=== PATIENT | female | born 1975 | race Caucasian/White ===

== ENCOUNTER 2021-01-28 11:14 | Outpatient (REF) | payer MEDICAID, SELFPAY ==
[2021-01-28 15:23] LABS: CT PCR NOT DETECTED (Not Detect.); NG PCR NOT DETECTED (Not Detect.)
[2021-01-29 08:22] LABS: BV Int Neg Control Negative (Negative); BV Int Pos Control Positive (Positive)
[2021-01-31 05:42] LABS: HPV mRNA E6/E7 rflx Not Detected (Not Detected)
== END 2021-01-28 11:15 | disposition home or self-care (01) ==
LOC: HO.LAB 11:14
PROVIDERS: Visit Provider Advanced Practice Midwife
DX: Z01.419 Encounter for gynecological examination (general) (routine) without abnormal findings (principal); Z11.51 Encounter for screening for human papillomavirus (HPV); Z11.3 Encounter for screening for infections with a predominantly sexual mode of transmission; Z20.2 Contact with and (suspected) exposure to infections with a predominantly sexual mode of transmission
CPT/HCPCS: 81003; 87480; 87491; 87510; 87591; 87624; 87660; 88142

== ENCOUNTER 2021-04-17 10:00 | Outpatient (REF) | payer MEDICAID, SELFPAY ==
--- NOTE | ~2021-04-17 | US_ITS ---
EXAMINATION: PELVIC ULTRASOUND CLINICAL INFORMATION: Check IUD placement COMPARISON: None TECHNIQUE: Transabdominal and transvaginal pelvic ultrasound was performed. Transvaginal exam was performed for better visualization of the uterus and ovaries. Exam is limited due to patient body habitus. FINDINGS: The uterus is anteverted and measures 10 x 7 x 9 cm in dimension. There are several focal uterine lesions suggestive of fibroids. These measure 3.4 x 3.3 x 3.4 cm in the high right uterine body near the endometrium, 3 cm in the high left uterine body near the endometrium, 1.8 x 1.2 x 1.7 cm in the right uterine body near the endometrium and in the right body measuring 2 x 2 x 1.2 cm. The endometrium does not appear thickened measuring 0.6 cm. The IUD is difficult to visualize. The IUD appears to be located in the lower uterine segment 4.3 cm from the uterine fundus. The right ovary is normal-appearing and measures 4.2 x 1.7 x 1.6 cm. The left ovary is not seen. There is no fluid in the pelvis. US/US pelvic and transvaginal IMPRESSION: Limited exam. Fibroid uterus. Low position of IUD in the lower uterine segment. This is 4.3 cm from the uterine fundus. Normal-appearing right ovary. Left ovary not seen.
== END 2021-04-17 10:01 | disposition home or self-care (01) ==
LOC: HO.HMGCX 10:00
PROVIDERS: Visit Provider Internal Medicine
DX: Z30.431 Encounter for routine checking of intrauterine contraceptive device (principal)
CPT/HCPCS: 76830; 76856

== ENCOUNTER 2022-02-12 10:23 | Outpatient (REF) | payer MEDICAID, SELFPAY ==
[2022-02-13 06:58] LABS: CT PCR NOT DETECTED (Not Detect.); NG PCR NOT DETECTED (Not Detect.)
[2022-02-13 10:56] LABS: BV Int Neg Control Negative (Negative); BV Int Pos Control Positive (Positive)
== END 2022-02-12 10:24 | disposition home or self-care (01) ==
LOC: HO.LAB 10:23
PROVIDERS: Visit Provider Advanced Practice Midwife
DX: Z01.419 Encounter for gynecological examination (general) (routine) without abnormal findings (principal); E66.01 Morbid (severe) obesity due to excess calories; Z20.2 Contact with and (suspected) exposure to infections with a predominantly sexual mode of transmission
CPT/HCPCS: 87480; 87491; 87510; 87591; 87660

== ENCOUNTER 2022-03-02 09:11 | Outpatient (REF) | payer MEDICAID, SELFPAY ==
--- NOTE | ~2022-03-02 | MM_ITS ---
EXAMINATION: MM SCREENING DIGITAL BREAST TOMOSYNTHESIS, BILATERAL CLINICAL INFORMATION: Screening. Asymptomatic. The lifetime risk of breast cancer based on the Tyrer-Cuzick Model is 11%. COMPARISON: Mammography: September 28, 2012 TECHNIQUE: Digital breast tomosynthesis is performed in both the craniocaudal and mediolateral oblique views along with computer-aided detection (CAD). Synthesized 2D images are generated from the tomosynthesis. FINDINGS: There are scattered areas of fibroglandular density (ACR BI-RADS breast composition Category b). There are no significant masses, abnormal calcifications, or other abnormalities. MM/MM tomosynthesis screening BI IMPRESSION: There are no significant changes from prior study. ASSESSMENT: BI-RADS 1: Negative RECOMMENDATION: Routine annual mammography screening. This patient's information was entered into a reminder system with a target due date for their next mammogram.
== END 2022-03-02 09:12 | disposition home or self-care (01) ==
LOC: HO.MAMMO 09:11
PROVIDERS: Visit Provider Advanced Practice Midwife
DX: Z12.31 Encounter for screening mammogram for malignant neoplasm of breast (principal)
CPT/HCPCS: 77063; 77067

== ENCOUNTER 2023-05-14 10:54 | Outpatient (REF) | payer MEDICAID, SELFPAY ==
[2023-05-17 16:19] LABS: TS Negative Control Passed; TS Panel A 0; TS Panel B 2; TS Positive Control Passed; TSpotTB Negative (Negative)
== END 2023-05-14 10:55 | disposition home or self-care (01) ==
LOC: HO.CHCLDS 10:54
PROVIDERS: Visit Provider Student in an Organized Health Care Education/Training Program
DX: Z11.1 Encounter for screening for respiratory tuberculosis (principal)
CPT/HCPCS: 36415; 86481

== ENCOUNTER 2024-03-17 10:04 | Outpatient (REF) | payer MEDICAID, SELFPAY ==
--- NOTE | ~2024-03-17 | MM_ITS ---
EXAMINATION: MM SCREENING DIGITAL BREAST TOMOSYNTHESIS, BILATERAL CLINICAL INFORMATION: Screening. Asymptomatic. COMPARISON: Mammography: This study is compared with prior exams dating back to 2012. TECHNIQUE: Digital breast tomosynthesis is performed in both the craniocaudal and mediolateral oblique views along with computer-aided detection (CAD). Synthesized 2D images are generated from the tomosynthesis. FINDINGS: There are scattered areas of fibroglandular density (ACR BI-RADS breast composition Category b). There are no significant masses, abnormal calcifications, or other abnormalities. MM/MM tomosynthesis screening BI IMPRESSION: No mammographic evidence of malignancy. ASSESSMENT: BI-RADS BI-RADS 1 - Negative RECOMMENDATION: Routine annual mammography screening. 1 year F/U This examination should not preclude the clinical evaluation of a suspicious palpable abnormality. This patient's information was entered into a reminder system with a target due date for their next mammogram.
== END 2024-03-17 10:05 | disposition home or self-care (01) ==
LOC: HO.MAMMO 10:04
PROVIDERS: PCP Student in an Organized Health Care Education/Training Program; Visit Provider Advanced Practice Midwife
DX: Z12.31 Encounter for screening mammogram for malignant neoplasm of breast (principal)
CPT/HCPCS: 77063; 77067

== ENCOUNTER → 2024-03-17 10:15 | Outpatient (BNV) | payer MEDICAID, SELFPAY | PROVIDERS: PCP Student in an Organized Health Care Education/Training Program; Visit Provider Radiology Diagnostic Radiology | DX: Z12.31 Encounter for screening mammogram for malignant neoplasm of breast (principal) | CPT/HCPCS: 77063; 77067 ==

== ENCOUNTER 2024-11-03 12:45 | Outpatient (REF) | payer MEDICAID, SELFPAY ==
--- NOTE | ~2024-11-03 | XR_ITS ---
EXAMINATION: XR KNEE, RIGHT CLINICAL INFORMATION: right knee pain /swelling. Denies injury. COMPARISON: None available. TECHNIQUE: Three views of the right knee. FINDINGS: No fracture, dislocation, or suspicious bone lesion. Normal alignment. Mild to moderate tricompartmental osteoarthrosis with mild marginal osteophytic spurring and spurring of the tibial spines. Small suprapatellar joint effusion present. Normal soft tissues. XR/XR knee RT 3V IMPRESSION: 1. No acute findings right knee. 2. Mild to moderate tricompartmental osteoarthrosis. 2. Small suprapatellar joint effusion. Electronically signed by: Elder Mendoza MD 11/03/2024 01:15 PM [facility]
--- OUTSIDE RECORDS SUMMARY | 2024-11-03 14:36 | XMS_ITS | Encounter Summary ---
Author Organization [employer] Address [address] [place] [address] Care Team Providers Care Investor Relations Analyst Name Role Phone Africa Holman MD Primary Care Provider [phone] Reason for Visit * Reason Onset Date Comments Appointment Request 11/03/2023 Encounter Details Date Type Department Care Team ([facility] Contact Info) Description 11/03/2023 Telephone [facility] [address] [place] [address] Africa Holman MD [address] [place] [address] Appointment Request Social History Tobacco Use Types Packs/Day Years Used Date Smoking Tobacco: Never Passive Smoke Exposure: Never Smokeless Tobacco: Never Alcohol Use Standard Drinks/Week Comments Never 0 (1 standard drink = 0.6 oz pur e alcohol) Depression Answer Date Recorded Patient Health Questionnaire-9 Score 0 12/31/2022 Housing Stability Answer Date Recorded What is your housing situation today? I have gurpreet lovell 07/27/[address] you li ve. Do you have problems with any of the following? None of the above 07/27/2023 Food Insecurity Answer Date Recorded Within the past 12 months, y ou worried that your food would run out before you got money to buy more: Never True 07/27/2023 Within the past 12 months,th e food you bought just didn't last and you didn't have enough money to get more: Never True 10/ Transportation Answer Date Recorded In the past 12 months, has l ack of transportation kept you from medical appts, meetings, work or from getting things needed for daily living? No 07/27/2023 Utilities Answer Date Recorded In the past 12 months, has t he electric, gas, oil or water company threatened to shut off services in your home? No 07/27/2023 Depression Answer Date Recorded Patient Health Questionnaire-2 Score 0 12/31/2022 Comments Unknown Sex and Gender Information Value Date Recorded Sex Assigned at Female 08/10/2022 10:15 AM EDT Legal Sex Female 10:15 AM EDT Gender Identity Female 08/10/2022 10:15 AM EDT Sexual Orientation Straight 08/10/2022 10 :15 AM EDT documented as of this encounter Miscellaneous Notes * Telephone Encounter - Eliu Keys - 11/03/2023 2:47 PM EST Tc from pt requesting a PE appt which is needed for work . Please contact pt @ [phone] documented in this encounter Plan of Treatment Not on file documented as of this encounter Visit Diagnoses Not on filedocumented in this encounter Additional Health Concerns Assessment Noted Time PHQ-9 Depression Total Score: 0 01/01/20 23 11:23 AM EDT documented as of this encounter Care Teams Investor Relations Analyst Relationship Specialty Start Date End Date Africa Holman MD [address] [place] [address] PCP - General Family Medicine 11/05/20 documented as of this encounter
--- OUTSIDE RECORDS SUMMARY | 2024-11-03 14:37 | XMS_ITS | Clinical Summary ---
Author Organization [facility] Address [address] [place] [id number] Care Team Providers Care Shore Working Supervisor Name Role Phone Farzad Rodriguez MD Primary Care Provider [phone] Surgical History Surgery Date Site/Laterality Comments TONSILLECTOMY PROCEDURE: HISTORICAL TONSILLECTOMY COLONOSCOPY W/ POLYPECTOMY 11/03/2010 PROCEDURE: CA COLSC FLX W/RMVL OF TUMOR POLYP LESION SNARE TQ; COMMENT: large 2 cm sigmoid colon polyp: Tubulovillous adenoma. 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 DX:Congeni mike pes planus Morbid obesity (CMS/HCC) 10/26/2006 DX:Morb id obesity (HCC) Depression 02/23/2008 DX:Depression Insomnia 02/23/2008 DX:Insomnia Unspecified asthma(493.90) DX:Un specified asthma(493.90); COMMENT: childhood Benign neoplasm of colon 11/03/2010 DX:Victorino gn neoplasm of colon Family History Medical History Relation Name Comments Other: ovarian cancer Aunt 1 matern al Other: alcoholic Father Other cancer Maternal Grandmother bone Other: epilepsy Mother 39 Breast cancer Mother's side 1 aunt Other cancer Other 1 15 y/o - needed bone marrow transplant Relation Name Status Comments Aunt 1 Aunt 2 Father Maternal Grandmother Mother Mother's side 1 Mother's side 2 Other 1 Other 2 Social History Tobacco Use Types Packs/Day Years Used Date Smoking Tobacco: Some Days Cigarettes Smokeless Tobacco: Never Alcohol Use Standard Drinks/Week Comments No 0 (1 standard drink = 0.6 oz pur e alcohol) Sex and Gender Information Value Date Recorded Sex Assigned at Not on file Gender Identity Not on file Sexual Orientation Not on file Obstetrics History Plan of Treatment Health Maintenance Due Date Last Done Comments Breast Cancer Screening 1975 Cervical Cancer Screening: P ap Smear 1997 DTaP,Tdap,and Td Vaccines (2 - Td or Tdap) 10/26/2016 10/26/2006 COVID-19 Vaccine (2023-2 5 season) 2024 Influenza Vaccine (#1) 2024 0, 12/03/2009, 12/03/2009 Hepatitis A Vaccines Aged Out 06/16/2001, 12/03/2000 No longer eligible based on patient's age to complete this topic Hepatitis B Vaccines Completed 06/16/2001, 01/05/2001, 12/03/2000 HIB Vaccines Aged Out No longer eligi ble based on patient's age to complete this topic HPV Vaccines Aged Out No longer eligi ble based on patient's age to complete this topic IPV Vaccines Aged Out No longer eligi ble based on patient's age to complete this topic MMR Vaccines Aged Out No longer eligi ble based on patient's age to complete this topic Meningococcal ACWY Vaccine Aged Out N o longer eligible based on patient's age to complete this topic Pneumococcal Vaccine: Pediatrics (0 to 5 Years) and At-Risk Patients (6 to 64 Years) Aged Out No longer eligible b ased on patient's age to complete this topic RSV Immunization Patients Under 20 months Aged Out No longer eligible b ased on patient's age to complete this topic Varicella Vaccines Aged Out No longer eligible based on patient's age to complete this topic Care Teams Shore Working Supervisor Relationship Specialty Start Date End Date Farzad Rodriguez MD [address] [facility] [place] PCP - General Internal Medicine 11/18/12
--- OUTSIDE RECORDS SUMMARY | 2024-11-03 14:37 | XMS_ITS | Encounter Summary ---
Author Organization [employer] Address [address] [place] [address] Care Team Providers Care Group Underwriter Name Role Phone Africa Holman MD Primary Care Provider [phone] Reason for Visit * Reason Onset Date Comments Nurse Triage 10/31/2024 Encounter Details Date Type Department Care Team ([facility] st Contact Info) Description 10/31/2024 Telephone [facility] [address] [place] [address] Africa Holman MD [address] [place] [address] Nurse Triage Social History Tobacco Use Types Packs/Day Years Used Date Smoking Tobacco: Never Passive Smoke Exposure: Never Smokeless Tobacco: Never Alcohol Use Standard Drinks/Week Comments Never 0 (1 standard drink = 0.6 oz pur e alcohol) Depression Answer Date Recorded Patient Health Questionnaire-9 Score 2 02/14/2024 Patient Health Questionnaire-9 Score 2 02/14/2024 Last PHQ-9: Questionnaire Data Not on file 0 02/14/2024 Housing Stability Answer Date Recorded What is your housing situation today? I have gurpreet lovell 02/07/[address] you li ve. Do you have problems with any of the following? None of the above 02/07/2024 Food Insecurity Answer Date Recorded Within the past 12 months, y ou worried that your food would run out before you got money to buy more: Never True 02/07/2024 Within the past 12 months,th e food you bought just didn't last and you didn't have enough money to get more: Never True Transportation Answer Date Recorded In the past 12 months, has l ack of transportation kept you from medical appts, meetings, work or from getting things needed for daily living? No 02/07/2024 Utilities Answer Date Recorded In the past 12 months, has t he electric, gas, oil or water company threatened to shut off services in your home? No 02/07/2024 Depression Answer Date Recorded Patient Health Questionnaire-2 Score 0 02/14/2024 Comments Unknown Sex and Gender Information Value Date Recorded Sex Assigned at Female 08/10/2022 10:15 AM EDT Legal Sex Female 10:15 AM EDT Gender Identity Female 08/10/2022 10:15 AM EDT Sexual Orientation Straight 08/10/2022 10 :15 AM EDT documented as of this encounter Miscellaneous Notes * Telephone Encounter - Breanne Joyner RN - 10/31/2024 3:19 PM EST called pt to triage, spoke to pt. pt states 4 days duration of swelling, pain, and decreased ROM. pt denies known injury, redness, inability to stand or walk, or other associated symptoms. given appttom[facility] with [facility] at 2:40 for exam. advised home care: rest, elevate, ice, heat, OTC pain reliever as needed, and call back if worsening or new concerns. pt understands and agrees with plan. insurance verified. Protocol Used: Knee Pain (Adult) Protocol-Based Disposition: See in Office or Video Visit within 3 Days Video visit offer not recorded Positive Triage Question: * Patient wants to be seen * All higher-acuity triage questions were negative Care Advice Discussed: * Reassurance and Education - Knee Pain * Pain Medicines * Pain Medicines - Extra Notes and Warnings * Using Heat for Pain * Reasons To Call Back - Moderate pain (interferes with normal activities, limping) lasts over 3 days - Mild pain lasts over 7 days - Signs of infection occur (spreading redness, warmth, fever) - You become worse * Telephone Encounter - Emelyn Westfall - 10/31/2024 11:29 AM EST Symptom: Knee Pain - Not From Injury Outcome: Schedule an urgent appointment (within 4 hours) or talk to a nurse or provider soon Reason: Swelling The caller accepted this outcome. Please reach ou to pt more then 2x . Due to being at work documented in this encounter Plan of Treatment Not on file documented as of this encounter Visit Diagnoses Not on filedocumented in this encounter Additional Health Concerns Assessment Noted Time PHQ-9 Depression Total Score: 2 02/14/20 24 10:30 AM EDT documented as of this encounter Care Teams Group Underwriter Relationship Specialty Start Date End Date Africa Holman MD [address] [place] [address] PCP - General Family Medicine 11/05/20 documented as of this encounter
--- OUTSIDE RECORDS SUMMARY | 2024-11-03 14:37 | XMS_ITS | Encounter Summary ---
Author Organization [employer] Address [address] [place] [address] Care Team Providers Care Gauge And Weigh Machine Adjuster Name Role Phone Africa Holman MD Primary Care Provider [phone] Encounter Details Date Type Department Care Team (Late st Contact Info) Description 10/09/2024 Telephone [facility] [address] [place], [place] [id number] Angélica Gomez [place] Social History Tobacco Use Types Packs/Day Years [...] encounter Miscellaneous Notes * Telephone Encounter - Angélica Gomez [place] - 10/09/2024 11:30 AM EST T/c to pt to book her a pap smear appointment for Nov I stated she was due pt stated she will call me back due to driving. documented in this encounter Plan of Treatment Not on file documented as of this encounter Visit Diagnoses Not on filedocumented in this encounter Additional Health Concerns Assessment Noted Time PHQ-9 Depression Total Score: 2 02/14/20 24 10:30 AM EDT documented as of this encounter Care Teams Gauge And Weigh Machine Adjuster Relationship Specialty Start Date End Date Africa Holman MD [address] [place] [address] PCP - General Family Medicine 11/05/20 documented as of this encounter
--- OUTSIDE RECORDS SUMMARY | 2024-11-03 14:37 | XMS_ITS | Encounter Summary ---
Author Organization [employer] Address [address] [facility] [facility] [address] [place] [address] Care Team Providers Care Certified Energy Manager Name Role Phone Africa Holman MD Primary Care Provider [phone] Reason for Referral * Consultation (Routine) - Closed Specialty Diagnoses / Procedures Referred By Orly [email or web address] Referred To Contact Physical Therapy Diagnoses Acute pain of right knee Travis Ley MD [address] [place] [address] Phone: tel: fax: Physical Therapy, AT [address] [place] [address] Dr Lori [place] Phone: tel: fax: Referral ID Status Reason Start Date Expiration Date V isits Requested Visits Authorized [id number] Closed Specialty Services Required 11/01/2024 11/01/2025 1 1 Reason for Visit * Reason Comments Knee Pain Encounter Details Date Type Department Care Team ([facility] st Contact Info) Description 11/01/2024 2:40 PM EST Office Visit [facility] & PEDS [address] [place] [address] Travis Ley MD [address] [place] [address] Acute pain of right knee (Primary Dx); Dietary counseling; Exercise counseling; Class 3 severe obesity due to excess calories with serious comorbidity and body mass index (BMI) of 45.0 to 49.9 in adult ([facility]) Social History Tobacco Use Types Packs/Day Years [...] is your housing situation today? I have gurpreetpriya lovell 02/07/[address] you [...] AM EDT documented as of this encounter Last Filed Vital Signs Vital Sign Reading Time Taken Comments Blood Pressure 142/75 11/01/2024 2:45 PM EST Pulse 88 11/01/2024 2:45 PM EST Temperature 36.7 ??C (98 ??F) 11/01/2024 2:45 PM EST Respiratory Rate 20 11/01/2024 2:45 PM EST Oxygen Saturation 98% 11/01/2024 2:45 PM EST Inhaled Oxygen Concentration - - Weight 152 kg (334 lb) 11/01/2024 2:45 PM EST Height 175.3 cm (5' 9 ) 11/01/2024 2:45 PM EST Body Mass Index 49.32 11/01/2024 2:45 PM EST documented in this encounter Progress Notes * Travsi Ley MD - 11/01/2024 2:40 PM EST Subjective Patient ID: Tia Moreira is a 49 y.o. female who presents for Knee Pain. Knee Pain Right knee discomfort that started 3-4 days ago associated w/ swelling of the knee. No reported fall/trauma. No fever. 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 Has to do her laundry as son's house and has to go up and down the stairs quiet a lot and use stairs as well multiple times a day at her house. Patient Active Problem List Diagnosis Obstructive sleep apnea syndrome Edema of extremities Diverticulosis of sigmoid colon Carpal tunnel syndrome Hyperhidrosis of axilla Genital herpes simplex Adult BMI 40.0-44.9 kg/sq m (CMS/HCC) Internal hemorrhoids Polyp of colon Morbid obesity (CMS/HCC) Current Outpatient Medications on File Prior to Visit Medication Sig Dispense Refill hydroCHLOROthiazide (HYDRODiuril) 25 MG tablet Take 1 tablet by mouth every 12 (twelve) hours. [DISCONTINUED] ibuprofen 800 MG tablet Take 1 tablet (800 mg) by mouth every 8 (eight) hours. 30 tablet 1 No current facility-administered medications on file prior to visit. Review of Systems Constitutional: Negative for appetite change, chills and diaphoresis. Eyes: Negative for photophobia, pain and redness. Respiratory: Negative for cough and choking. Gastrointestinal: Negative for abdominal distention, abdominal pain and anal bleeding. Genitourinary: Negative for enuresis, flank pain and frequency. Musculoskeletal: Right knee pain Objective Physical Exam Constitutional: Appearance: Normal appearance. She is obese. She is not ill-appearing or diaphoretic. Pulmonary: Effort: Pulmonary effort is normal. Musculoskeletal: Right knee: Swelling and effusion present. No tenderness. Left knee: No swelling, deformity, effusion or erythema. Neurological: Mental Status: She is alert. 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 documented in this encounter Plan of Treatment Scheduled Referrals Name Type Priority Associated Diagnoses Orde r Schedule Referral to Physical Therapy Outpatient Referral Routine Acute pain of right knee Expected: 11/01/2024 (Approximate), Expires: 11/01/2025 documented as of this encounter Procedures Procedure Name Priority Date/Time Associated Diagnosis Comments XR KNEE 3 VIEWS RIGHT Routine 11/03/2024 12:45 PM EST Acute pain of right knee documented in this encounter Results * XR Knee 3 Views Right (11/03/2024 12:45 PM EST) Anatomical Region Laterality Modality Lower Extremities, Knee Right Radiogra phic Imaging 11/03/2024 12:4 5 PM EST Narrative 11/03/2024 1:17 PM EST ?[facility] ?[address] ?[place] [address] ?XRay Report ? Signed ? Patient: Tia Moreira ?MR#: [id number] ?? 47 ? : 1975 ?Acct:[id number] ? Age/Sex: 49 / F ?ADM Date: 01/24/25 ? Loc: HO.HHCX ? Attending Dr: Travis Ley MD ? Ordering Physician: Travis Ley MD ?? Date of Service: 11/03/24 ?? Procedure(s): XR knee RT 3V ?? Accession Number(s): [id number] ? cc: Travis Ley MD ? EXAMINATION: ?? XR KNEE, RIGHT ? CLINICAL INFORMATION: ?? right knee pain /swelling. ??Denies injury. ? COMPARISON: ?? None available. ? TECHNIQUE: ?? Three views of the right knee. ? FINDINGS: ?? No fracture, dislocation, or suspicious bone lesion. Normal alignment. ?? Mild to moderate tricompartmental osteoarthrosis with mild marginal ?? osteophytic spurring and spurring of the tibial spines. ? Small suprapatellar joint effusion present. ?? Normal soft tissues. ? XR/XR knee RT 3V ?? IMPRESSION: ? 1. No acute findings right knee. ?? 2. Mild to moderate tricompartmental osteoarthrosis. ?? 2. Small suprapatellar joint effusion. ? Electronically signed by: ??Elder Mendoza MD ??11/03/2024 01:15 PM EST RP ? Dictated By: ?Elder Mendoza MD ? Signed By: ?<Electronically signed by Elder Mendoza MD in OV> ?11/03/24 1315 ? DD/ 1245 ? TD/TT: 11/03/24 1256 ? Electronic Tester: ? Procedure Note Arelis, Image - 11/03/[address] [address] XRay Report Signed Patient: Tia Moreira LMR#: [id number] 47 : 1975Acct:[id number] Age/Sex: 49 / FADM Date: 11/03/24 Loc: HO.HHCX Attending Dr: Travis Ley MD Ordering Physician: Travis Ley MD Date of Service: 11/03/24 Procedure(s): XR knee RT 3V Accession Number(s): [id number] cc: Travis Ley MD EXAMINATION: XR KNEE, RIGHT CLINICAL INFORMATION: right knee pain /swelling. Denies injury. COMPARISON: None available. TECHNIQUE: Three views of the right knee. FINDINGS: No fracture, dislocation, or suspicious bone lesion. Normal alignment. Mild to moderate tricompartmental osteoarthrosis with mild marginal osteophytic spurring and spurring of the tibial spines. Small suprapatellar joint effusion present. Normal soft tissues. XR/XR knee RT 3V IMPRESSION: 1. No acute findings right knee. 2. Mild to moderate tricompartmental osteoarthrosis. 2. Small suprapatellar joint effusion. Electronically signed by: Elder Mendoza MD 11/03/2024 01:15 PM EST RP Dictated By: Elder Mendoza MD Signed By: <Electronically signed by Elder Mendoza MD in OV> 11/03/24 1315 DD/ 1245 TD/TT: 11/03/24 1256 Electronic Tester: us Travis Ley MD IMG XR PROCEDURES Final Res ult documented in this encounter Visit Diagnoses Diagnosis Acute pain of right knee- Primary Dietary counseling Dietary surveillance and counseling Exercise counseling Class 3 severe obesity due to excess calories with serious comorbidity and body mass index (BMI) of 45.0 to 49.9 in adult (CMS/HCC) documented in this encounter Additional Health Concerns Assessment Noted Time PHQ-9 Depression Total Score: 2 02/14/20 24 10:30 AM EDT documented as of this encounter Care Teams Certified Energy Manager Relationship Specialty Start Date End Date Africa Holman MD [address] [place] [id number] PCP - General Family Medicine 11/05/20 documented as of this encounter
--- OUTSIDE RECORDS SUMMARY | 2024-11-03 14:37 | XMS_ITS | Clinical Summary ---
Author Organization [employer] Address [address] [place] [address] Care Team Providers Care Extrusion Die Repair Manager Name Role Phone Africa Holman MD Primary Care Provider [phone] Allergies No known active allergies Medications hydroCHLOROthia zide (HYDRODiuril) 25 MG tablet Take 1 tablet by mouth every 12 (twelve) hours. 2 Active naproxen (Naprosyn) 500 MG tabletIndicatio ns:Acute pain of right knee Take 1 tablet (500 mg) by mouth 2 times daily. 60 tablet 5 12/01/19 25 Active ibuprofen 800 MG tablet Take 1 tablet (800 mg) by mouth every 8 (eight) hours. 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 Genital herpes simplex 02/14/2024 Adult BMI 40.0-44.9 kg/sq m 02/14/2024 Internal hemorrhoids 02/14/2024 Polyp of colon 02/14/2024 Morbid obesity 02/14/2024 Obstructive sleep apnea syndrome 12/31/2022 Edema of extremities 12/31/2022 Diverticulosis of sigmoid colon 12/31/2022 Carpal tunnel syndrome 12/31/2022 Encounters Date Type Department Care Team Description 11/01/2024 2:40 PM EST Office Visit [facility] MED & PEDS [address] [place] [address] Travis Ley MD Acute pain of right knee (Primary Dx); Dietary counseling; Exercise counseling; Class 3 severe obesity due to excess calories with serious comorbidity and body mass index (BMI) of 45.0 to 49.9 in adult ([facility]) 11/01/2024 Travel 10/31/2024 Telephone [facility] MED & PEDS [address] [place], [place] [phone] Africa Holman MD Nurse Triage 10/09/2024 Telephone [facility] MEDICINE [address] [place], [place] [phone] Angélica Gomez MA from Last 3 Months Immunizations Name Administration Dates Next Due Hep A, Adult 06/16/2001,12/03/2000 Hep B, adult 04/11/2014, 4,09/11/2013,2000,01/05/2001,12/03/2000 Influenza Whole 07/27/2012 Influenza injectable quadriv alent preservative free 06/19/2022,10/07/2021,07/26/2020 Influenza, IIV3, injectable 07/12/2019,1 ,06/29/2017,2012,09/18/2010,12/03/2009 Novel [id number], preservative-free 12/03/2009 TD (adult), 2 Lf tetanus tox oid, preservative free, adsorbed 10/26/2006 Tdap 01/17/2021,06/08/2013 Social History Tobacco Use Types Packs/Day Years Used Date Smoking Tobacco: Never Passive Smoke Exposure: Never Smokeless Tobacco: Never Tobacco Cessation:Counseling Given: Not Answered Alcohol Use Standard Drinks/Week Comments Never 0 [...] Orientation Straight 08/10/2022 10 :15 AM EDT Last Filed Vital Signs Vital Sign Reading [...] Mass Index 49.32 11/01/2024 2:45 PM EST Plan of Treatment Health Maintenance Due Date Last Done Comments CT Colonography 1975 Colonoscopy 1975 Colorectal Cancer Screening 1975 FIT DNA/Cologuard 1976 FIT 1975 FOBT 1976 Sigmoidoscopy 1976 Family Planning (PISQ) 1991 Hepatitis C Screening 1994 Pap Smear 1997 COVID-19 Vaccine ( season) 2024 10/07/2021, 03/17/2021, 02/17/2021 Influenza Vaccine (#1) 2024 2, 10/07/2021, 07/26/2020, Additional history exists Cervical Cancer Screening 11/29/2024 HPV/Cotest 11/29/2024 11/29/2019 Alcohol/Substance Use Screening 02/13/2025 02/14/2024 Depression Screening 02/13/2025 02/14/2024, 02/14/20 24 SDOH Screening 02/13/2025 02/14/2024 Tobacco Screening 02/13/2025 02/14/2024 Mammogram 03/17/2026 03/17/2024 Zoster Vaccines (1 of 2) 2026 Lipid Panel 06/19/2027 06/19/2022 DTaP/Tdap/Td Vaccines (3 - Td or Tdap) 01/17/2031 01/17/2021, 06/08/2013, 10/26/2006 RSV Patients and Patients Aged 60 years or older (1 - 1-dose 75+ series) 2051 Hepatitis A Vaccines Aged Out 06/16/2001, 12/03/19 01 No longer eligible based on patient's age to complete this topic Hepatitis B Vaccines Completed 04/11/2014, 10/12/2013, 09/11/2013, Additional history exists HIV Screening Completed 10/23/2019 HIB Vaccines Aged Out No longer eligi ble based on patient's age to complete this topic HPV Vaccines Aged Out No longer eligi ble based on patient's age to complete this topic IPV Vaccines Aged Out No longer eligi ble based on patient's age to complete this topic Meningococcal Vaccine Aged Out No joanne paxton eligible based on patient's age to complete this topic Pneumococcal Vaccine: Pediatrics (0 to 5 Years) and At-Risk Patients (6 to 64 Years) Aged Out No longer eligible based on patient's age to complete this topic RSV under 20 months Aged Out No longe r eligible based on patient's age to complete this topic Rotavirus Vaccines Aged Out No longer eligible based on patient's age to complete this topic Procedures Procedure Name Priority Date/Time Associated Diagnosis Comments XR KNEE 3 VIEWS RIGHT Routine 11/03/2024 12:45 PM EST Acute pain of right knee BI MAMMOGRAM SCREENING TOMOSYNTHESIS BILATERAL Routine 03/17/2024 10:35 AM EDT LIPID PANEL, STANDARD Routine 06/19/2022 11:06 AM EDT GENE HISTORICAL HPV MRNA E6/E7 Routine 11/29/2019 8:50 AM EST GENE HISTORICAL HIV AB/AG Routine 10/23/2019 3:53 PM EST from Last 3 Months or Most Recently Relevant to Health Maintenance Results * XR Knee 3 Views Right (11/03/2024 12:45 PM EST) Anatomical Region Laterality Modality Lower Extremities, Knee Right Radiogra phic Imaging 11/03/2024 12:4 5 PM EST Narrative 11/03/2024 1:17 PM EST ?[facility] ?[address] ?[place] [address] ?XRay Report ? Signed ? Patient: Tia Moreira ?MR#: [id number] ?? 47 ? : 1975 ?Acct:[id number] ? Age/Sex: 49 / F ?ADM Date: 11/03/24 ? Loc: HO.HHCX ? Attending Dr: Travis Ley MD ? Ordering Physician: Travis Ley MD ?? Date of Service: 11/03/24 ?? Procedure(s): XR knee RT 3V ?? Accession Number(s): [id number] ? cc: Travis Ley MD ? EXAMINATION: [...] DD/ 1245 ? TD/TT: 11/03/24 1256 ? Blowing Weasand: ? Procedure Note Arelis, Image - 11/03/[address] [address] XRay Report Signed Patient: Tia Moreira LMR#: [id number] 47 : 1975Acct:[id number] Age/Sex: 49 / FADM Date: 11/03/24 Loc: HO.HHCX Attending Dr: Travis Ley MD Ordering Physician: Travis Ley MD Date of Service: 11/03/24 Procedure(s): XR knee RT 3V Accession Number(s): [id number] cc: Travis Ley MD EXAMINATION: XR KNEE, [...] by: Elder Mendoza MD 11/03/2024 01:15 PM [facility] Dictated By: Elder Mendoza MD Signed By: <Electronically signed by Elder Mendoza MD in OV> 11/03/24 1315 DD/ 1245 TD/TT: 11/03/24 1256 Blowing Weasand: us Travis Ley MD IMG XR PROCEDURES Final Res ult * BI Mammogram Screening Tomosynthesis Bilateral (03/17/2024 10:35 AM EDT) Anatomical Region Laterality Modality Breast Bilateral Mammography 03/17/2024 10:3 5 AM EDT Narrative 04/11/2024 8:36 AM EDT ? [facility] [place] ? [address] ?[place] [address] ? Mammography Report ? Signed ? Patient: Tia Moreira ?MR#: [id number] ?? 47 ? : 1975 ?Acct:[id number] ? Age/Sex: 48 / F ?ADM Date: 03/17/24 ? Loc: HO.MAMMO ? Attending Dr: Stephany Anderson CNM ? Ordering Physician: Stephany Anderson CNM ?Results: 1Negati ?? ve ? Date of Service: 03/17/24 ?Follow Up: 1 Year From Orig ?? inal Mammogram ? Procedure(s): MM tomosynthesis screening BI ?? Accession Number(s): [id number] ? cc: Stephany Anderson CNM; Africa Holman MD ? EXAMINATION: ?? MM SCREENING DIGITAL BREAST TOMOSYNTHESIS, BILATERAL ? CLINICAL INFORMATION: ? Screening. Asymptomatic. ? COMPARISON: ?? Mammography: This study is compared with prior exams dating back to ?? 2011. ? TECHNIQUE: ?? Digital breast tomosynthesis is performed in both the craniocaudal and ?? mediolateral oblique views along with computer-aided detection (CAD). ?? Synthesized 2D images are generated from the tomosynthesis. ? FINDINGS: ?? There are scattered areas of fibroglandular density (ACR BI-RADS breast ?? composition Category b). ? There are no significant masses, abnormal calcifications, or other ?? abnormalities. ? MM/MM tomosynthesis screening BI ?? IMPRESSION: ?? No mammographic evidence of malignancy. ? ASSESSMENT: ? BI-RADS BI-RADS 1 - Negative ? RECOMMENDATION: ?? Routine annual mammography screening. ? 1 year F/U ? This examination should not preclude the clinical evaluation of a ?? suspicious palpable abnormality. ? This patient's information was entered into a reminder system with a ?? target due date for their next mammogram. ? Dictated By: ?Ninoska Fernandez MD ? Signed By: ?<Electronically signed by Ninoska Fernandez MD in OV> ? 04/11/24 0832 ? DD/ 1035 ? TD/TT: ? Blowing Weasand: ? Procedure Note Zee Infante - 04/11/2024 [facility] [address] [place], [place] [address] Mammography Report Signed Patient: Tia Moreira LMR#: [id number] 47 : 1975Acct:[id number] Age/Sex: 48 / FADM Date: 03/17/24 Loc: PIA Attending Dr: Stephany Anderson CNM Ordering Physician: Stephany Andersonesults: 1Negati ve Date of Service: 03/17/24Follow Up: 1 Year From Orig inal Mammogram Procedure(s): MM tomosynthesis screening BI Accession Number(s): [id number] cc: Stephany Anderson CNM; Africa Holman MD EXAMINATION: MM SCREENING DIGITAL BREAST TOMOSYNTHESIS, BILATERAL CLINICAL INFORMATION: Screening. Asymptomatic. COMPARISON: Mammography: This study is compared with prior exams dating back to 2012. TECHNIQUE: Digital breast tomosynthesis is performed in both the craniocaudal and mediolateral oblique views along with computer-aided detection (CAD). Synthesized 2D images are generated from the tomosynthesis. FINDINGS: There are scattered areas of fibroglandular density (ACR BI-RADS breast composition Category b). There are no significant masses, abnormal calcifications, or other abnormalities. MM/MM tomosynthesis screening BI IMPRESSION: No mammographic evidence of malignancy. ASSESSMENT: BI-RADS BI-RADS 1 - Negative RECOMMENDATION: Routine annual mammography screening. 1 year F/U This examination should not preclude the clinical evaluation of a suspicious palpable abnormality. This patient's information was entered into a reminder system with a target due date for their next mammogram. Dictated By: Ninoska Fernandez MD Signed By: <Electronically signed by Ninoska Fernandez MD in OV> 04/11/24 0832 DD/ 1035 TD/TT: Blowing Weasand: [facility] External Provider IMG BI PROCEDURES Edited Result - Final * (ABNORMAL) LIPID PANEL, STANDARD (06/19/2022 11:06 AM EDT) Chol/HDLC Ratio 4.9 <5.0 (calc) [facility] Cholesterol, Total 171 <200 mg/dL [facility] HDL Cholesterol 35(L) > OR = 50 mg/dL [facility] LDL Cholesterol 118(H) mg/dL (calc) [facility] Comment: Reference range: <100 ?? Desirable range <100 mg/dL for primary prevention; ?? <70 mg/dL for patients with CHD or diabetic patients ?? with > or = 2 CHD risk factors. ?? LDL-C is now calculated using the Tony-Almaraz ?? calculation, which is a validated novel method providing ?? better accuracy than the Friedewald equation in the ?? estimation of LDL-C. ?? Tony SS et al. KINDRA. 2013;31019): 7886-9043 ?? (http://AFFiRiS.Sybari/faq/RXS997) Non-HDL Cholesterol 136(H) <130 mg/dL (calc) [facility] Comment: For patients with diabetes plus 1 major ASCVD risk ?? factor, treating to a non-HDL-C goal of <100 mg/dL ?? (LDL-C of <70 mg/dL) is considered a therapeutic ?? option. Triglycerides 84 <150 mg/dL [facility] 06/19/2022 11:0 6 AM EDT us Africa Holman MD LAB BLOOD ORDERABLES Final Resul t [facility] [address] * HPV mRNA E6/E7 (11/29/2019 8:50 AM EST) HPV mRNA E6/E7 Not Detected NOT DETECTED [facility] Comment: This test was performed using the APTIMA(R) HPV Assay ([employer] This assay detects E6/E7 viral messenger RNA (mRNA) from 14 high-risk HPV types (16,18,31,33,35,39,45,51, 52,56,58,59,66,68). For additional information please refer to: http://AFFiRiS.OptiNose/faq/ZUX871i6 (This link is being provided for informational/ educational purposes only.) The analytical performance characteristics of this assay have been determined by [facility] [place], [place]. The modifications have not been cleared or approved by the FDA. This assay has been validated pursuant to the CLIA regulations and is used for clinical purposes. Test Performed by [email or web address], [facility], [address] [place] [address] Amilcar Alston M.D., Ph.D., Director of Laboratories , CLIA [id number] Please note: ??Effective 06/22/2016, HPV testing will be performed using [employer]'s APTIMA test which targets mRNA. Detecting mRNA instead of DNA, as in older methods, offers significant improvements in specificity. 11/29/2019 8:50 AM EST us Raissa Unger [facility] HISTORICAL/NON ORDERABLE LABS Final Result Performing Organization Address [facility] de Phone Number [facility] [address] * HIV AB/AG (10/23/2019 3:53 PM EST) Pathologist [facility] HIV AG/AB NONREACTIVE NR [facility] Comment: HIV-1 p24 Ag and/or HIV-1/HIV-2 Ab not detected. ?? A test result that is nonreactive does not exclude the possibility of exposure to or infection with HIV-1 and/or HIV-2. Nonreactive results in this assay for individuals with prior exposure to HIV-1 and/or HIV-2 may be due to antigen and antibody levels that are below the limit of detection of this assay. ?? The [employer] Scrap Stripper Hand HIV Ag/Ab Combo assay result and supplemental assay results should be interpreted in conjunction with the patient's clinical presentation, history and other laboratory results. ??If the results are inconsistent with clinical evidence, additional testing is suggested to confirm the result. 10/23/2019 3:53 PM EST us Romario Marie MD HISTORICAL/NON ORD ERABLE LABS Final Result Performing Organization Address [facility] de Phone Number [facility] [address] from Last 3 Months or Most Recently Relevant to Health Maintenance [facility] [employer] Care Teams Extrusion Die Repair Manager Relationship Specialty Start Date End Date Africa Holman MD [address] [place] [address] [place] [address] PCP - General Family Medicine 11/05/20
--- OUTSIDE RECORDS SUMMARY | 2024-11-03 14:37 | XMS_ITS | Encounter Summary ---
Author Organization [employer] Address [address] [place] [address] Care Team Providers Care Contract Runner Name Role Phone Africa Holman MD Primary Care Provider [phone] Encounter Details Date Type Department Care Team (Latest Contact Info) Description 11/01/2024 Travel Social History Tobacco Use Types Packs/Day Years [...] AM EDT documented as of this encounter Plan of Treatment Not on file documented as of this encounter Visit Diagnoses Not on filedocumented in this encounter Additional Health Concerns Assessment Noted Time PHQ-9 Depression Total Score: 2 02/14/20 24 10:30 AM EDT documented as of this encounter Care Teams Contract Runner Relationship Specialty Start Date End Date Africa Holman MD [address] [place] [address] PCP - General Family Medicine 11/05/20 documented as of this encounter
== END 2024-11-03 12:46 | disposition home or self-care (01) ==
LOC: HO.HHCX 12:45
PROVIDERS: Visit Provider Internal Medicine
DX: M25.561 Pain in right knee (principal)
CPT/HCPCS: 73562

== ENCOUNTER → 2024-11-03 12:45 | Outpatient (BNV) | payer MEDICAID, SELFPAY | PROVIDERS: Visit Provider Radiology Diagnostic Radiology | DX: M17.11 Unilateral primary osteoarthritis, right knee (principal); M25.461 Effusion, right knee | CPT/HCPCS: 73562 ==

== ENCOUNTER 2024-12-05 16:47 | Outpatient (REF) | payer MEDICAID, SELFPAY ==
--- OUTSIDE RECORDS SUMMARY | 2024-12-05 19:53 | XMS_ITS | Encounter Summary ---
Author Organization [employer] Address [address] [place] [address] Care Team Providers Care Sculpture Conservator Name Role Phone Africa oHlman MD Primary Care Provider [phone] Reason for Visit * Reason Onset Date Comments Appointment Request 11/03/2023 Encounter Details Date Type Department Care Team ([facility] Contact Info) Description 11/03/2023 Telephone [facility] MED & PEDS [address] [place] [address] Africa Holman MD [address] [place] [address] Appointment Request Social History Tobacco Use Types [...] Miscellaneous Notes * Telephone Encounter - Eliu Connelly Keys - 11/03/2023 2:47 PM EST Tc from pt requesting a PE appt which is needed for work . Please contact pt @ [phone] documented in this encounter Plan of Treatment Upcoming Encounters Date Type Department Care Team (Late st Contact Info) Description 01/08/2025 1:00 PM EDT Nutrition [facility] DIABETES/NUTRITION [address] [place] [address] Devora Kearney, RD [address] [place] [address] 03/02/2025 9:15 AM EDT Office Visit [facility]C MED & PEDS [address] [place] [address] Africa Holman MD [address] [place] [address] documented as of this encounter Visit Diagnoses Not on filedocumented in this encounter Additional Health Concerns Assessment Noted Time PHQ-9 Depression Total Score: 0 01/01/20 23 11:23 AM EDT documented as of this encounter Care Teams Sculpture Conservator Relationship Specialty Start Date End Date Africa Holman MD [address] [place] [address] PCP - General Family Medicine 11/05/20 documented as of this encounter
--- OUTSIDE RECORDS SUMMARY | 2024-12-05 19:54 | XMS_ITS | Clinical Summary ---
Author Organization [facility] Address [address] [place] [address] Care Team Providers Care Bending Frame Operator Name Role Phone Farzad Rodriguez MD Primary Care Provider [phone] Surgical History Surgery Date Site/Laterality Comments TONSILLECTOMY PROCEDURE: HISTORICAL TONSILLECTOMY COLONOSCOPY W/ POLYPECTOMY 11/03/2010 PROCEDURE: VT COLSC FLX W/RMVL OF TUMOR POLYP LESION [...] drink = 0.6 oz pur e alcohol) Comments Unknown Sex and Gender Information Value Date Recorded Sex Assigned at Not on file Legal Sex Female 9:04 PM EST Gender Identity Not on file Sexual Orientation [...] patient's age to complete this topic Meningococcal B Vacine Aged Out No lo nger eligible based on patient's age to complete [...] age to complete this topic Care Teams Bending Frame Operator Relationship Specialty Start Date End Date Farzad Rodriguez MD [address] [place] [address] [address] [place] PCP - General Internal Medicine 11/18/12
--- OUTSIDE RECORDS SUMMARY | 2024-12-05 19:54 | XMS_ITS | Clinical Summary ---
Author Organization [employer] Address [address] [facility] [address] [place] [address] Care Team Providers Care Paper Core Machine Operator Name Role Phone Africa Holman MD Primary Care Provider [phone] Allergies No known active allergies Medications hydroCHLOROthi azide (HYDRODiuril) 25 MG tablet Take 1 tablet by mouth every 12 (twelve) hours. 05/05/20 22 Active Diclofenac Sodium (Voltaren) 1 % gel Use topical BID 100 g 3 12/04/19 25 Active capsaicin (Capzasin-HP) 0.1 % cream Apply topically 2 times daily. 60 g 3 12/04/19 25 Active valACYclovir (Valtrex) 500 MG tablet Take 1 tablet (500 mg) by mouth Once per day. 30 tablet 11 12/05/19 25 026 Active naproxen (Naprosyn) 500 MG tabletIndicati ons:Acute pain of right knee Take 1 tablet (500 mg) by mouth 2 times daily. 60 tablet 11/01/19 25 025 Discontinued lidocaine-pril ocaine (Emla) 2.5-2.5 % cream Apply topically 1 (one) time for 1 dose. 1 g 3 12/04/19 25 025 Active Problems Problem Noted Date Diagnosed Date Hyperhidrosis of axilla 02/14/2024 Genital herpes simplex 02/14/2024 Adult BMI 40.0-44.9 kg/sq m 02/14/2024 Internal hemorrhoids 02/14/2024 Polyp of colon 02/14/2024 Morbid obesity 02/14/2024 Obstructive sleep apnea syndrome 12/31/2022 Edema of extremities 12/31/2022 Diverticulosis of sigmoid colon 12/31/2022 Carpal tunnel syndrome 12/31/2022 Encounters Date Type Department Care Team Description 12/05/2024 2:15 PM EST Procedure Visit [address] [address] Raissa Unger CNM Cervical cancer screening (Primary Dx); Fibroids; Dysuria; Screening examination for venereal disease 12/05/[address] Referral 12/05/2024 Travel 12/04/2024 11:00 AM EST Office Visit [facility] MED & PEDS [address] [place] [address] Africa Holman MD Edema of extremities (Primary Dx); Acute pain of right knee; Adult BMI 40.0-44.9 kg/sq m (CMS/HCC) 12/04/2024 Travel 11/03/[address] [address] Kailyn Mccollum, RN Results 11/01/2024 2:40 PM EST Office Visit [facility] MED & PEDS [address] [place] [address] Travis Ley MD Acute pain of right knee (Primary Dx); Dietary counseling; Exercise counseling; Class 3 severe obesity due to excess calories with serious comorbidity and body mass index (BMI) of 45.0 to 49.9 in adult (CMS/HCC) 11/01/2024 Travel 10/31/2024 Telephone [facility] MED & PEDS [address] [place] [address] Africa Holman MD Nurse Triage 10/09/[address] [address] Angélica Gomez [place] from Last 3 Months Immunizations Name Administration Dates Next Due Hep A, Adult 06/16/2001,12/03/2000 Hep B, adult 04/11/2014, 4,09/11/2013,2000,01/05/2001,12/03/2000 Influenza Whole 07/27/2012 Influenza injectable quadriv alent preservative free 06/19/2022,10/07/2021,07/26/2020 Influenza, IIV3, injectable 07/12/2019,1 ,06/29/2017,2012,09/18/2010,12/03/2009 Novel [id number], preservative-free 12/03/2009 TD (adult), 2 Lf tetanus [...] Recorded Patient Health Questionnaire-2 Score 0 02/14/2024 Internet Access Answer Date Recorded Internet Access Q1 No 12/04/2024 Internet Access Q2 I do not want or need it 11/12 Comments No Sex and Gender Information Value Date Recorded Sex Assigned at Female 08/10/2022 10:15 AM EDT Legal Sex Female 10:15 AM EDT Gender Identity Female 08/10/2022 10:15 AM EDT Sexual Orientation Straight 08/10/2022 10 :15 AM EDT Last Filed Vital Signs Vital Sign Reading Time Taken Comments Blood Pressure 137/78 12/05/2024 1:59 PM EST Pulse 87 12/05/2024 1:59 PM EST Temperature 36.6 ??C (97.8 ??F) 12/05/2024 1:59 PM ES T Respiratory Rate 20 12/05/2024 1:59 PM EST Oxygen Saturation 98% 12/05/2024 1:59 PM EST Inhaled Oxygen Concentration - - Weight 150 kg (331 lb) 12/05/2024 1:59 PM EST Height 175.3 cm (5' 9 ) 12/05/2024 1:59 PM EST Body Mass Index 48.88 12/05/2024 1:59 PM EST Plan of Treatment Upcoming Encounters Date Type Department Care Team (Late st Contact Info) Description 01/08/2025 1:00 PM EDT Nutrition [facility] DIABETES/NUTRITION [address] [place] [address] Devora Kearney, LUCY [address] [place] [address] 03/02/2025 9:15 AM EDT Office Visit [facility] CHC MED & PEDS [address] [place] [address] Africa Holman MD [address] [place] [address] Health Maintenance Due Date Last Done Comments CT Colonography 1975 Colonoscopy 1975 Colorectal Cancer Screening 1975 FIT DNA/Cologuard 1975 FIT 1975 FOBT 1975 Sigmoidoscopy 1975 Hepatitis C Screening 1994 Pap Smear 1997 Influenza Vaccine (#1) 2024 2, 10/07/2021, 07/26/2020, Additional history exists Cervical Cancer Screening 11/29/2024 HPV/Cotest 11/29/2024 11/29/2019 Depression Screening 02/13/2025 02/14/2024, 02/14/20 Alcohol/Substance Use Screening 12/04/2025 12/04/2024 COVID-19 Vaccine ( season) 2025 10/07/2021, 03/17/2021, 02/17/2021 Postponed from 06/11/2024 (Patient Refused) SDOH Screening 12/04/2025 12/04/2024 Family Planning (PISQ) 12/05/2025 12/05/2024 Tobacco Screening 12/05/2025 12/05/2024 Mammogram 03/17/2026 03/17/2024 Zoster Vaccines (1 of 2) 2026 Lipid Panel 06/19/2027 06/19/2022 DTaP/Tdap/Td Vaccines (3 - Td or Tdap) 01/17/2031 01/17/2021, 06/08/2013, 10/26/2006 RSV Patients and Patients Aged 60 years or older (1 - 1-dose 75+ series) 2051 Hepatitis A Vaccines Aged Out 06/16/2001, 12/03/19 No longer eligible based on patient's age [...] 5 Years) and At-Risk Patients (6 to 49) Years) Aged Out No longer eligible based on patient's age to complete this topic RSV under 20 months Aged Out No longe r eligible based on patient's age to complete this topic Rotavirus Vaccines Aged Out No longer eligible based on patient's age to complete this topic Procedures Procedure Name Priority Date/Time Associated Diagnosis Comments POCT URINALYSIS DIPSTICK Routine 12/05/2024 2:23 PM EST Dysuria XR KNEE 3 VIEWS RIGHT Routine 11/03/2024 12:45 PM EST Acute pain of right knee BI MAMMOGRAM SCREENING TOMOSYNTHESIS BILATERAL Routine 03/17/2024 10:35 AM EDT LIPID PANEL, STANDARD Routine 06/19/2022 11:06 AM EDT [facility] HISTOR[facility] HPV MRNA E6/E7 Routine 11/29/2019 8:50 AM EST [facility] HIV AB/AG Routine 10/23/2019 3:53 PM EST from Last 3 Months or Most Recently Relevant to Health Maintenance Results * (ABNORMAL) POCT Urinalysis (12/05/2024 2:23 PM EST) Color, UA Yellow Clarity, UA Clear Glucose, UA Negative Bilirubin, UA Negative Ketones, UA Negative Spec Grav, UA 1.030 Blood, UA Positive(A) Negative, None Detected Comment:trace-lysed pH, UA 5.5 Protein, UA Negative Urobilinogen, UA 0.2 Leukocytes, UA Negative Negative, Rare, Trace Nitrite, UA Negative Negative, None Detected Appearance, UA yellow QC Media Lot # [id number] Lot# Expiration Date Urine 12/05/2024 2:23 PM EST Raissa Unger CNM POINT OF CARE TEST ENTER/ EDIT ORDERABLES Final Result * XR Knee 3 Views Right (11/03/2024 12:45 PM EST) Anatomical Region Laterality Modality Lower Extremities, Knee Right Radiogra phic Imaging 11/03/2024 12:4 5 PM EST Narrative 11/03/2024 1:17 PM EST ?[facility] ?[address] ?[place] [address] ?XRay Report ? Signed ? Patient: Harish,Tia L ?MR#: [id number] ?? 47 ? : 1975 ?Acct:[id number] ? Age/Sex: 49 / F ?ADM Date: 11/03/24 ? Loc: HO.HHCX ? Attending Dr: Travis Ley MD ? Ordering Physician: Travis Ley MD ?? Date of Service: 11/03/24 ?? Procedure(s): XR knee RT 3V ?? Accession Number(s): [id number] ? cc: Travis Ley MD ? EXAMINATION: [...] Mendoza MD ??11/03/2024 01:15 PM EST RP ?? Workstation: [id number] ? Dictated By: ?Elder Mendoza MD ? Signed By: ?<Electronically signed by Elder Mendoza MD in OV> ?11/03/24 1315 ? DD/ 1245 ? TD/TT: 11/03/24 1256 ? Medical Claims Processor: ? Procedure Note Zee Infante - 11/03/[address] [address] XRay Report Signed Patient: Tia Moreira LMR#: [id number] 47 : 1975Acct:[id number] Age/Sex: 49 / FADM Date: 11/03/24 Loc: HO.HHCX Attending Dr: Travis Ley MD Ordering Physician: Travis Ley MD Date of Service: 11/03/24 Procedure(s): XR knee RT 3V Accession Number(s): [id number] cc: Travis Ley MD EXAMINATION: XR KNEE, [...] by: Elder Mendoza MD 11/03/2024 01:15 PM [facility] Dictated By: Elder Mendoza MD Signed By: <Electronically signed by Elder Mendoza MD in OV> 11/03/24 1315 DD/ 1245 TD/TT: 11/03/24 1256 Medical Claims Processor: us Travis Ley MD IMG XR PROCEDURES Final Res ult * BI Mammogram Screening Tomosynthesis Bilateral (03/17/2024 10:35 AM EDT) Anatomical Region Laterality Modality Breast Bilateral Mammography 03/17/2024 10:3 5 AM EDT Narrative 04/11/2024 8:36 AM EDT ? [facility] ? [address] ?[place] [address] ? Mammography Report ? Signed ? Patient: Harish,Tia L ?MR#: [id number] ?? 47 ? : 1975 ?Acct:[id number] ? Age/Sex: 48 / F ?ADM Date: 06/07/24 ? Loc: HO.MAMMO ? Attending Dr: Stephany Anderson CNM ? Ordering Physician: Stephany Anderson CNM ?Results: 1Negati ?? ve ? Date of Service: 03/17/24 ?Follow Up: 1 Year From Orig ?? inal Mammogram ? Procedure(s): MM tomosynthesis screening BI ?? Accession Number(s): [id number] ? cc: Stephany Anderson CNM; Africa Holman [...] in OV> ? 04/11/24 0832 ? DD/ ? TD/TT: ? Medical Claims Processor: ? Procedure Note Arelis, Image - 04/11/2024 [place] [facility] [address] [place] [address] Mammography Report Signed Patient: Tia Moreira LMR#: [id number] 47 : 1975Acct:[id number] Age/Sex: 48 / FADM Date: 03/17/24 Loc: HO.MAMMO Attending Dr: Stephany Anderson CNM Ordering Physician: Stephany Andersonesults: 1Negati ve Date of Service: 03/17/24Follow Up: 1 Year From Orig inal Mammogram Procedure(s): MM tomosynthesis screening BI Accession Number(s): [id number] cc: Stephany Anderson CNM; Africa Holman MD [...] in OV> 04/11/24 0832 DD/ 1035 TD/TT: Medical Claims Processor: [facility] External Provider IMG BI PROCEDURES Edited Result [...] LDL-C. ?? Tony SS et al. KINDRA. 2013;310(19): 3032-6957 ?? (http://education.[employer]MyClasses/faq/SJR419) Non-HDL Cholesterol 136(H) <130 mg/dL (calc) [facility] Comment: For patients with diabetes plus 1 major ASCVD risk ?? factor, treating to a non-HDL-C goal of <100 mg/dL ?? (LDL-C of <70 mg/dL) is considered a therapeutic ?? option. Triglycerides 84 <150 mg/dL [facility] 06/19/2022 11:0 6 AM EDT Africa Holman MD LAB BLOOD ORDERABLES Final Resul t [facility] [address] * HPV mRNA E6/E7 (11/29/2019 8:50 AM EST) HPV mRNA E6/E7 Not Detected NOT DETECTED [facility] Comment: This test was performed using the APTIMA(R) HPV Assay ([employer] This assay detects E6/E7 viral messenger RNA (mRNA) from 14 high-risk HPV types (16,18,31,33,35,39,45,51, 52,56,58,59,66,68). For additional information please refer to: http://education.[employer]/faq/UBO989a4 (This link is being provided for informational/ educational purposes only.) The analytical performance characteristics of this assay have been determined by [facility] [place], [place]. The modifications have not been cleared or approved by the FDA. This assay has been validated pursuant to the CLIA regulations and is used for clinical purposes. Test Performed by [facility], [facility] [place], [address] [place] [address] Amilcar Alston M.D., Ph.D., Director of Laboratories , CLIA [id number] Please note: ??Effective 06/22/2016, HPV testing will be performed using [employer] APTIMA test which targets mRNA. Detecting mRNA instead of DNA, as in older methods, offers significant improvements in specificity. 11/29/2019 8:50 AM EST Raissa Unger CNM HISTORICAL/NON ORDERABLE LABS Final Result [facility] [address] * HIV AB/AG (10/23/2019 3:53 PM EST) Pathologist [facility] HIV AG/AB NONREACTIVE NR [facility] [...] detection of this assay. ?? The [employer] HIV Ag/Ab Combo assay result and supplemental assay results should be interpreted in conjunction with the patient's clinical presentation, history and other laboratory results. ??If the results are inconsistent with clinical evidence, additional testing is suggested to confirm the result. 10/23/2019 3:53 PM EST Romario Marie MD HISTORICAL/NON ORD ERABLE LABS Final Result [facility] Pending sale to [facility] [address] from Last 3 Months or Most Recently Relevant to Health Maintenance Insurance [employer] C[employer] Care Teams Paper Core Machine Operator Relationship Specialty Start Date End Date Africa Holman MD [address] [place] [id number] PCP - General Family Medicine 11/05/20
--- OUTSIDE RECORDS SUMMARY | 2024-12-05 19:54 | XMS_ITS | Encounter Summary ---
Author Organization [employer] Address [address] [facility] [address]t [place] [address] Care Team Providers Care Campaign Coordinator Name Role Phone Africa Holman MD Primary Care Provider [phone] Reason for Referral * Consultation (Routine) - Pending Review Specialty Diagnoses / Procedures Referred By Orly [email or web address] Referred To Contact Nutrition Diagnoses Adult BMI 40.0-44.9 kg/sq m (CMS/HCC) Africa Hloman MD [address] [place] [address] Phone: tel: fax: Referral ID Status Reason Start Date Expiration Date Visits Requested Visits Authorized [id number] Pending Review Specialty Services Required 12/04/2024 12/04/2025 1 1 Encounter Details Date Type Department Care Team (Late st Contact Info) Description 12/04/2024 11:00 AM EST Office Visit [facility] CHC MED & PEDS [address] [place] [address] Africa Holman MD [address] [place] [address] Edema of extremities (Primary Dx); Acute pain of right knee; Adult BMI 40.0-44.9 kg/sq m (CMS/HCC) Social History Tobacco Use Types Packs/Day Years [...] Sign Reading Time Taken Comments Blood Pressure 130/72 12/04/2024 11:14 AM EST Pulse 84 12/04/2024 11:14 AM EST Temperature 36.5 ??C (97.7 ??F) 12/04/2024 11:[address] Respiratory Rate 20 12/04/2024 11:14 AM EST Oxygen Saturation - - Inhaled Oxygen Concentration - - Weight 150 kg (331 lb) 12/04/2024 11:14 AM EST Height 175.3 cm (5' 9 ) 12/04/2024 11:14 AM EST Body Mass Index 48.88 12/04/2024 11:14 AM EST documented in this encounter Progress Notes * Africa Holman MD - 12/04/2024 11:00 AM EST Subjective Patient ID: Tia Moreira is a 49 y.o. female who presents for No chief complaint on file.. Arthritis Presents for follow-up visit. She complains of pain. The symptoms have been worsening. Affected locations include the right knee. Her pain is at a severity of 6/10. Pertinent negatives include no diarrhea, dry mouth, dysuria, fatigue, fever, rash, Raynaud's syndrome, uveitis or weight loss. Review of Systems Constitutional: Negative. Negative for fatigue, fever and weight loss. Respiratory: Negative. Negative for shortness of breath. Cardiovascular: Negative for chest pain and palpitations. Gastrointestinal: Negative. Negative for diarrhea. Genitourinary: Negative. Negative for dysuria. Musculoskeletal: Positive for arthralgias, arthritis and back pain. Negative for neck pain. Skin: Negative for rash. Neurological: Negative for headaches. Objective Physical Exam Constitutional: Appearance: Normal appearance. Cardiovascular: Rate and Rhythm: Normal rate and regular rhythm. Pulses: Normal pulses. Heart sounds: Normal heart sounds. Pulmonary: Effort: Pulmonary effort is normal. Abdominal: General: Abdomen is flat. Neurological: Mental Status: She is alert. Assessment/Plan Diagnoses and all orders for this visit: Edema of extremities Comments: Cont HCTZ daily Strongly advised low salt diet and weight loss Orders: - Basic Metabolic Panel; Future - Lipid Panel, Standard; Future - Hepatic Function Panel; Future Acute pain of right knee Comments: Started on Voltaren gel and Lidocaine gel Cont PT Adult BMI 40.0-44.9 kg/sq m (CMS/HCC) Maintain a low-sodium diet (less than 2 grams per day). Maintain a regular cardiovascular exercise program. Advised to maintain a low-fat, low-cholesterol diet. Counseled regarding importance of weight loss. - Referral to Nutrition Therapy; Future Other orders - Diclofenac Sodium (Voltaren) 1 % gel; Use topical BID - lidocaine-prilocaine (Emla) 2.5-2.5 % cream; Apply topically 1 (one) time for 1 dose. - capsaicin (Capzasin-HP) 0.1 % cream; Apply topically 2 times daily. documented in this encounter Plan of Treatment Upcoming Encounters Date Type Department Care Team (Late st Contact Info) Description 01/08/2025 1:00 PM EDT Nutrition [facility] DIABETES/NUTRITION [address] [place] [address] [place] [address] 03/02/2025 9:15 AM EDT Office Visit [facility] CHC MED & PEDS [address] [place], [place] [id number] Africa Holman MD [address] [place] [address] Scheduled Orders Name Type Priority Associated Diagnoses Orde r Schedule Basic Metabolic Panel Lab Routine Edema of extremities Expected: 12/04/2024 (Approximate), Expires: 12/04/2025 Lipid Panel, Standard Lab Routine Edema of extremities Expected: 12/04/2024 (Approximate), Expires: 12/04/2025 Hepatic Function Panel Lab Routine Edema of extremities Expected: 12/04/2024 (Approximate), Expires: 12/04/2025 Scheduled Referrals Name Type Priority Associated Diagnoses Orde r Schedule Referral to Nutrition Therapy Outpatient Referral Routine Adult BMI 40.0-44.9 kg/sq m (CMS/HCC) Expected: 12/04/2024 (Approximate), Expires: 12/04/2025 documented as of this encounter Visit Diagnoses Diagnosis Edema of extremities- Primary Edema Acute pain of right knee Adult BMI 40.0-44.9 kg/sq m (CMS/HCC) documented in this encounter Additional Health Concerns Assessment Noted Time PHQ-9 Depression Total Score: 2 02/14/20 10:30 AM EDT documented as of this encounter Care Teams Campaign Coordinator Relationship Specialty Start Date End Date Africa Holman MD [address] [place] [address] PCP - General Family Medicine 11/05/20 documented as of this encounter
--- OUTSIDE RECORDS SUMMARY | 2024-12-05 19:54 | XMS_ITS | Encounter Summary ---
Author Organization [employer] Address [address] [facility] [address] [facility] [address] [place] [address] Care Team Providers Care Forensic Examiner Name Role Phone Africa Holman MD Primary Care Provider [phone] Encounter Details Date Type Department Care Team (Latest Contact Info) Description 12/04/2024 Travel Social History Tobacco Use Types Packs/Day [...] as of this encounter Plan of Treatment Upcoming Encounters Date Type Department Care Team (Late st Contact Info) Description 01/08/2025 1:00 PM EDT Nutrition [facility] DIABETES/NUTRITION [address] [place] [address] [place] [address] 03/02/2025 9:15 AM EDT Office Visit [facility] CHC MED & PEDS [address] [place] [address] Africa Holman MD [address] [place] [address] documented as of this encounter Visit Diagnoses Not on filedocumented in this encounter Additional Health Concerns Assessment Noted Time PHQ-9 Depression Total Score: 2 02/14/20 24 10:30 AM EDT documented as of this encounter Care Teams Forensic Examiner Relationship Specialty Start Date End Date Africa Holman MD [address] [place] [address] PCP - General Family Medicine 11/05/20 documented as of this encounter
--- OUTSIDE RECORDS SUMMARY | 2024-12-05 19:54 | XMS_ITS | Encounter Summary ---
Author Organization [employer] Address [address] [facility] [address] [place] [address] Care Team Providers Care Staff Development Manager Name Role Phone Africa Holman MD Primary Care Provider [phone] Encounter Details Date Type Department Care Team (Latest Contact Info) Description 12/05/2024 Travel Social History Tobacco Use Types Packs/Day [...] Info) Description 01/08/2025 1:00 PM EDT Nutrition [facility] DIABETES/NUTRITION [address] [place] [address] [place] [address] 03/02/2025 9:15 AM EDT Office Visit [facility] CHC MED & PEDS [address] [place] [address] Arfica Holman MD [address] [place] [address] documented as of this encounter Visit Diagnoses Not on filedocumented in this encounter Additional Health Concerns Assessment Noted Time PHQ-9 Depression Total Score: 2 02/14/20 24 10:30 AM EDT documented as of this encounter Care Teams Staff Development Manager Relationship Specialty Start Date End Date Africa Holman MD [address] [place] [address] PCP - General Family Medicine 11/05/20 documented as of this encounter
--- OUTSIDE RECORDS SUMMARY | 2024-12-05 19:54 | XMS_ITS | Encounter Summary ---
Author Organization [employer] Address [address] [place] [address] [facility] [place] [address] Care Team Providers Care Notch Machine Operator Name Role Phone Africa Holman MD Primary Care Provider [phone] Reason for Referral * Imaging (Routine) - Authorized Specialty Diagnoses / Procedures Referred By Orly [email or web address] Referred To Contact Radiology Diagnoses Fibroids Procedures Us Pelvis complete Raissa Unger CNM [address] [place] [address] Phone: tel: fax: [facility] [address] [place] [address] Phone: tel: fax: Referral ID Status Reason Start Date Expiration Date V isits Requested Visits Authorized [id number] Authorized 12/05/2024 12/05/2025 1 1 * Imaging (Routine) - Authorized Specialty Diagnoses / Procedures Referred By Orly [email or web address] Referred To Contact Radiology Diagnoses Fibroids Procedures US Pelvis Transvaginal Raissa Unger CNM [address] [place] [address] Phone: tel: fax: [facility] [address] [place] [address], [address] [address] Phone: tel: fax: Referral ID Status Reason Start Date Expiration Date V isits Requested Visits Authorized [id number] Authorized 12/05/2024 12/05/2025 1 1 Reason for Visit * Reason Comments Gynecologic Exam Encounter Details Date Type Department Care Team (Latest Contact Info) Description 12/05/2024 2:15 PM EST Procedure Visit [facility] MEDICINE [address] [place], [place] [phone] Raissa Unger CNM [address] [place] [address] Cervical cancer screening (Primary Dx); Fibroids; Dysuria; Screening examination for venereal disease Social History Tobacco Use Types Packs/Day Years [...] Mass Index 48.88 12/05/2024 1:59 PM EST documented in this encounter Progress Notes * Raissa Unger CNM - 12/05/2024 2:15 PM EST Subjective Patient ID: Tia Moreira is a 49 y.o. female who presents for pap Pap NIL/HPV neg 11/2019. Known fibroids. Previously on progestin only pill. Not currently taking. Menses coming less often. No prolonged/frequent or heavy bleeding. No vasomotor symptoms. Known HSV 2 positive, asymptomatic. No STI testing on file. Not sexually active in a few years, would like full STI testing today. Notes some burning with urination recently. No other vaginal/urinary symptoms. Mammogram BIRADS 1, cat b 03/2024. Review of Systems Constitutional: Negative for chills and fever. Gastrointestinal: Negative for abdominal pain. Genitourinary: Positive for dysuria. Negative for dyspareunia, flank pain, frequency, genital sores, hematuria, menstrual problem, pelvic pain, urgency, vaginal bleeding, vaginal discharge and vaginal pain. No abnormal pap, no abnormal bleeding, no breast pain, no breast mass, no nipple discharge Musculoskeletal: Negative for back pain. Objective BP 137/78 (BP Location: Left arm, Patient Position: Sitting, BP Cuff Size: Large adult) Pulse 87 Temp 97.8 ??F (36.6 ??C) (Temporal) Resp 20 Ht 5' 9 (1.753 m) Wt 331 lb (150 kg) LMP 10/23/2024 (Approximate) SpO2 98% BMI 48.88 kg/m?? Physical Exam Constitutional: Appearance: Normal appearance. Chest: Breasts: Right: Normal. No swelling, bleeding, inverted nipple, mass, nipple discharge, skin change or tenderness. Left: Normal. No swelling, bleeding, inverted nipple, mass, nipple discharge, skin change or tenderness. Genitourinary: General: Normal vulva. Labia: Right: No rash, tenderness, lesion or injury. Left: No rash, tenderness, lesion or injury. Vagina: Normal. No signs of injury and foreign body. No vaginal discharge, erythema, tenderness, bleeding or lesions. Cervix: No cervical motion tenderness, discharge, friability, lesion, erythema, cervical bleeding or eversion. Uterus: Normal. Not enlarged and not tender. Adnexa: Right adnexa normal and left adnexa normal. Right: No mass, tenderness or fullness. Left: No mass, tenderness or fullness. Lymphadenopathy: Upper Body: Right upper body: No supraclavicular or axillary adenopathy. Left upper body: No supraclavicular or axillary adenopathy. Neurological: Mental Status: She is alert. Psychiatric: Mood and Affect: Mood normal. Behavior: Behavior normal. Assessment/Plan Diagnoses and all orders for this visit: Cervical cancer screening - Pap Smear Cotest today. Will contact with results and plan. Repeat 5 years if normal/HPV neg. Reviewed normal vs abnormal perimenopausal bleeding changes. Report prolonged, frequent or heavy bleeding. Report bleeding after a year of no bleeding. Fibroids - US Pelvis Transvaginal; Future - Us Pelvis complete; Future Asymptomatic. Will get updated ultrasound. Dysuria - POCT Urinalysis - Culture, Urine, Routine Trace blood. Will send culture and treat positive results. If culture negative, repeat UA if no menses in next day. Screening examination for venereal disease - STI testing add on (NG, CT, Trich) - Hepatitis B Core Antibody, Total; Future - Hepatitis B Surface Antibody, Qualitative; Future - Hepatitis B surface antigen, EIA; Future - Hepatitis C Antibody with Reflex to HCV, RNA, Quantitative, Real-Time PCR; Future - HIV-1/2 Antigen and Antibodies, Fourth Generation, with Reflexes; Future - Syphilis Screen; Future Vaginal and serum labs ordered. Will contact with results. Has found it hard to date with HSV diagnosis. Validated experience. Many people have HSV. She is aware of dating sites for people who are HSV positive. Discussed pros and cons of antiviral therapy. She would like rx on file in case she becomes sexually active and partner not HSV positive. Rx sent in, reviewed this is for daily use. Call if outbreaks or any concerns. Encouraged condoms for STI prevention. May call at any time if interested in starting control. Other orders - valACYclovir (Valtrex) 500 MG tablet; Take 1 tablet (500 mg) by mouth Once per day. documented in this encounter Plan of Treatment Upcoming Encounters Date Type Department Care Team (Late st Contact Info) Description 01/08/2025 1:00 PM EDT Nutrition [facility] DIABETES/NUTRITION [address] [place] [address] Devora Kearney, LUCY [address] [place] [address] 03/02/2025 9:15 AM EDT Office Visit [facility] CHC MED & PEDS [address] [place] [address] Africa Holman MD [address] [place] [address] Scheduled Orders Name Type Priority Associated Diagnoses Order Schedule Pap Smear Pathology and Cytology Routine Cervical cancer screening Ordered: 12/05/2024 Culture, Urine, Routine Microbiology Routine Dysuria Ordered: 12/05/2024 STI testing add on (NG, CT, Trich) Pathology and Cytology Routine Screening examination for venereal disease Ordered: 12/05/2024 Hepatitis B Core Antibody, Total Lab Routine Screening examination for venereal disease Expected: 12/05/2024 (Approximate), Expires: 12/05/2025 Hepatitis B Surface Antibody, Qualitative Lab Routine Screening examination for venereal disease Expected: 12/05/2024 (Approximate), Expires: 12/05/2025 Hepatitis B surface antigen, EIA Lab Routine Screening examination for venereal disease Expected: 12/05/2024 (Approximate), Expires: 12/05/2025 Hepatitis C Antibody with Reflex to HCV, RNA, Quantitative, Real-Time PCR Lab Routine Screening examination for venereal disease Expected: 12/05/2024 (Approximate), Expires: 12/05/2025 HIV-1/2 Antigen and Antibodies, Fourth Generation, with Reflexes Lab Routine Screening examination for venereal disease Expected: 12/05/2024 (Approximate), Expires: 12/05/2025 Syphilis Screen Lab Routine Screening examination for venereal disease Expected: 12/05/2024 (Approximate), Expires: 12/05/2025 US Pelvis Transvaginal Imaging Routine Fibroids Expected: 12/05/2024, Expires: 12/05/2025 Us Pelvis complete Imaging Routine Fibroids Expected: 12/05/2024, Expires: 12/05/2025 documented as of this encounter Procedures Procedure Name Priority Date/Time Associated Diagnosis Comments POCT URINALYSIS DIPSTICK Routine 12/05/2024 2:23 PM EST Dysuria documented in this encounter Results * (ABNORMAL) POCT Urinalysis (12/05/2024 2:23 [...] CARE TEST ENTER/ EDIT ORDERABLES Final Result documented in this encounter Visit Diagnoses Diagnosis Cervical cancer screening- Primary Screening for malignant neoplasm of the cervix Fibroids Leiomyoma of uterus, unspecified Dysuria Screening examination for venereal disease documented in this encounter Additional Health Concerns Assessment Noted Time PHQ-9 Depression Total Score: 2 02/14/20 24 10:30 AM EDT documented as of this encounter Care Teams Notch Machine Operator Relationship Specialty Start Date End Date Africa Holman MD [address] [place] [address] PCP - General Family Medicine 11/05/20 documented as of this encounter
--- OUTSIDE RECORDS SUMMARY | 2024-12-05 19:54 | XMS_ITS | Encounter Summary ---
Author Organization [employer] Address [address] [place] [address] Care Team Providers Care Benzol Operator Name Role Phone Africa Holman MD Primary Care Provider [phone] Reason for Visit * Reason Onset Date Comments Referral 12/05/2024 Encounter Details Date Type Department Care Team ([facility] st Contact Info) Description 12/05/2024 Telephone [facility] MEDICINE [address] [place], [place] [phone] Devora Kearney, LUCY [address] [place], [place] [phone] Referral Social History Tobacco Use Types Packs/Day Years [...] encounter Miscellaneous Notes * Telephone Encounter - Jaye Randhawa - 12/05/2024 2:11 PM EST PT walked in for an appointment with Devora. PT scheduled, but due to insurance and code changes. BMI is no longer a diagnosis we are able to use, can a new referral for nutrition be sent using the following diagnosis OVERWEIGHT UNDER WEIGHT OBESITY BMI will no longer be covered for nutrition consult documented in this encounter Plan of Treatment Upcoming Encounters Date Type Department Care Team (Late st Contact Info) Description 01/08/2025 1:00 PM EDT Nutrition [facility] DIABETES/NUTRITION [address] [place] [address] [place] [address] 03/02/2025 9:15 AM EDT Office Visit [facility] CHC MED & PEDS [address] [place] [address] Africa Holman MD [address] [place] [address] documented as of this encounter Visit Diagnoses Not on filedocumented in this encounter Additional Health Concerns Assessment Noted Time PHQ-9 Depression Total Score: 2 02/14/20 24 10:30 AM EDT documented as of this encounter Care Teams Benzol Operator Relationship Specialty Start Date End Date Africa Holman MD [address] [place] [address] PCP - General Family Medicine 11/05/20 documented as of this encounter
[2024-12-07 14:13] LABS: C. trachomatis RNA TMA NOT DETECTED (NOT DETECTED); N. gonorrhoeae RNA TMA NOT DETECTED (NOT DETECTED)
[2024-12-12 11:08] LABS: HPV Genotype 16 Negative (Negative); HPV Genotype 18 Negative (Negative); HPV High Risk Negative (Negative)
[2024-12-15 13:11] LABS: Trichomonas (NAAT) NOT DETECTED
== END 2024-12-05 16:48 | disposition home or self-care (01) ==
LOC: HO.HHCLNP 16:47
PROVIDERS: Visit Provider Advanced Practice Midwife
DX: Z12.4 Encounter for screening for malignant neoplasm of cervix (principal); R30.0 Dysuria; Z11.3 Encounter for screening for infections with a predominantly sexual mode of transmission; Z11.51 Encounter for screening for human papillomavirus (HPV)
CPT/HCPCS: 87086; 87147; 87491; 87591; 87626; 87661; 88175

== ENCOUNTER 2024-12-08 11:16 | Outpatient (REF) | payer MEDICAID, SELFPAY ==
--- OUTSIDE RECORDS SUMMARY | 2024-12-08 13:24 | XMS_ITS | Clinical Summary ---
Author Organization [facility] Address [address] [place] [id number] Care Team Providers Care Technical Administrative Assistant Name Role Phone Farzad Rodriguez MD Primary Care Provider [phone] Surgical History Surgery Date Site/Laterality Comments TONSILLECTOMY PROCEDURE: HISTORICAL TONSILLECTOMY COLONOSCOPY W/ POLYPECTOMY 11/03/2010 PROCEDURE: NE COLSC FLX W/RMVL OF TUMOR POLYP LESION [...] age to complete this topic Care Teams Technical Administrative Assistant Relationship Specialty Start Date End Date Farzad Rodriguez MD [address] [place] [address] [address] [place] PCP - General Internal Medicine 11/18/12
--- OUTSIDE RECORDS SUMMARY | 2024-12-08 13:24 | XMS_ITS | Encounter Summary ---
Author Organization [employer] Address [address] [place] [address] Care Team Providers Care District Manager Name Role Phone Africa Holman MD Primary Care Provider [phone] Reason for Visit * Reason Onset Date Comments Appointment Request 11/03/2023 Encounter Details Date Type Department Care Team ([facility] Contact Info) Description 11/03/2023 Telephone [facility] MED & PEDS [address] [place] [address] Africa Holman MD [address] [place] [address] Appointment Request Social History Tobacco Use Types [...] for work . Please contact pt @ [phone] documented in this encounter Plan of Treatment Upcoming Encounters Date Type Department Care Team (Late st Contact Info) Description 01/08/2025 1:00 PM EDT Nutrition [facility] DIABETES/NUTRITION [address] [place] [address] Devora Kearney, RD [address] [place] [address] 03/02/2025 9:15 AM EDT Office Visit [facility] CHC MED & PEDS [address] [place] [address] Africa Holman MD [address] [place] [address] documented as of this encounter Visit Diagnoses Not on filedocumented in this encounter Additional Health Concerns Assessment Noted Time PHQ-9 Depression Total Score: 0 01/01/20 23 11:23 AM EDT documented as of this encounter Care Teams District Manager Relationship Specialty Start Date End Date Africa Holman MD [address] [place] [address] PCP - General Family Medicine 11/05/20 documented as of this encounter
--- OUTSIDE RECORDS SUMMARY | 2024-12-08 13:24 | XMS_ITS | Encounter Summary ---
Author Organization [employer] Address [address] [place] [address] Care Team Providers Care Mail Forwarding System Markup Clerk Name Role Phone Africa Holman MD Primary Care Provider [phone] Reason for Visit * Reason Onset Date Comments Results 12/07/2024 Encounter Details Date Type Department Care Team ([facility] st Contact Info) Description 12/07/2024 Telephone [facility] MEDICINE [address] [place] [address] Stephany Barron, MANJIT Results Social History Tobacco Use Types Packs/Day Years [...] encounter Miscellaneous Notes * Telephone Encounter - Raissa Unger CNM - 12/08/2024 8:08 AM EST Noted. I will send in Macrobid. Will need UA after completing antibiotics. * Telephone Encounter - Nancy Brar RN - 12/07/2024 3:39 PM EST Incoming call from the pt via the critical lab line . Pt states that the call dropped with the nurse . A call to Soha SARAVIA at [facility] was placed Soha is unable to take the call at this time . Will route this call to Soha Gautam RN for review. TY. * Telephone Encounter - Soha Gautam RN - 12/07/2024 3:30 PM EST Spoke with patient about results and gave her all recommendations. All questions and concerns addressed. Will route to provider to get antibiotics ordered. Patient will also need a new UA as she is still have urinary symptoms. Patient denies having her period many months ago. * Telephone Encounter - Claudio Pena - 12/07/2024 2:27 PM EST Pt returning call * Telephone Encounter - Stephany Barron RN - 12/07/2024 11:32 AM EST TC placed to pt and LVM to call back the office regarding message below ---- Message from Raissa Unger sent at 12/07/2024 11:30 AM EST ----- Please let Tia know her urine showed mixed normal skin bacteria and low levels of GBS (group B strep). This isn't dangerous, but can sometimes cause UTIs. If she is still having urinary symptoms, please let me know and I will send in abx. Humberto sibley also ask if she got her period today. If not, I want to repeat UA since there was some blood in her urine. Thanks! documented in this encounter Plan of Treatment Upcoming Encounters Date Type Department Care Team (Late st Contact Info) Description 01/08/2025 1:00 PM EDT Nutrition [facility] DIABETES/NUTRITION [address] [place] [address] [place] [address] 03/02/2025 9:15 AM EDT Office Visit [facility] CHC MED & PEDS [address] [place] [address] Africa Holman MD [address] [place] [address] documented as of this encounter Visit Diagnoses Not on filedocumented in this encounter Additional Health Concerns Assessment Noted Time PHQ-9 Depression Total Score: 2 02/14/20 24 10:30 AM EDT documented as of this encounter Care Teams Mail Forwarding System Markup Clerk Relationship Specialty Start Date End Date Africa Holman MD [address] [place] [address] PCP - General Family Medicine 11/05/20 documented as of this encounter
--- OUTSIDE RECORDS SUMMARY | 2024-12-08 13:24 | XMS_ITS | Encounter Summary ---
Author Organization [employer] Address [address] [place] [address] Care Team Providers Care Transfer Controller Name Role Phone Africa Holman MD Primary Care Provider [phone] Encounter Details Date Type Department Care Team (Late st Contact Info) Description 12/08/2024 Orders Only [facility] MEDICINE [address] [place], [place] [phone] Raissa Unger CNM [address] [place], [place] [phone] Hematuria, microscopic (Primary Dx) Social History Tobacco Use Types Packs/Day Years [...] Info) Description 01/08/2025 1:00 PM EDT Nutrition [facility] DIABETES/NUTRITION [address] [place] [address] [place] [address] 03/02/2025 9:15 AM EDT Office Visit [facility] CHC MED & PEDS [address] [place] [address] Africa Holman MD [address] [place] [address] Scheduled Orders Name Type Priority Associated Diagnoses Orde r Schedule Urinalysis Complete Lab Routine Hematuria, microscopic Expected: 12/08/2024, Expires: 12/08/2025 documented as of this encounter Visit Diagnoses Diagnosis Hematuria, microscopic- Primary Microscopic hematuria documented in this encounter Additional Health Concerns Assessment Noted Time PHQ-9 Depression Total Score: 2 02/14/20 24 10:30 AM EDT documented as of this encounter Care Teams Transfer Controller Relationship Specialty Start Date End Date Africa Holman MD [address] [place] [address] PCP - General Family Medicine 11/05/20 documented as of this encounter
--- OUTSIDE RECORDS SUMMARY | 2024-12-08 13:24 | XMS_ITS | Encounter Summary ---
Author Organization [employer] Address [address] [place] [address] Care Team Providers Care Matzo Forming Machine Operator Name Role Phone Africa Holman MD Primary Care Provider [phone] Reason for Visit * Reason Onset Date Comments Referral 12/05/2024 Encounter Details Date Type Department Care Team ([facility] st Contact Info) Description 12/05/2024 Telephone [facility] MEDICINE [address] [place], [place] [phone] Devora Kearney, LUCY [address] [place], [place] [phone] Referral Social History Tobacco Use Types Packs/Day [...] encounter Miscellaneous Notes * Telephone Encounter - Africa Holman MD - 12/06/2024 3:54 PM EST Done * Telephone Encounter - Jaye Randhawa - [...] Info) Description 01/08/2025 1:00 PM EDT Nutrition [facility] DIABETES/NUTRITION [address] [place] [address] [place] [address] 03/02/2025 9:15 AM EDT Office Visit [facility] CHC MED & PEDS [address] [place] [address] Africa Holman MD [address] [place] [address] documented as of this encounter Visit Diagnoses Not on filedocumented in this encounter Additional Health Concerns Assessment Noted Time PHQ-9 Depression Total Score: 2 02/14/20 24 10:30 AM EDT documented as of this encounter Care Teams Matzo Forming Machine Operator Relationship Specialty Start Date End Date Africa Holman MD [address] [place] [address] PCP - General Family Medicine 11/05/20 documented as of this encounter
--- OUTSIDE RECORDS SUMMARY | 2024-12-08 13:24 | XMS_ITS | Encounter Summary ---
Author Organization [employer] Address [address] [place] [address] Care Team Providers Care Hotel Houseman Name Role Phone Africa Holman MD Primary Care Provider [phone] Encounter Details Date Type Department Care Team [...] Info) Description 01/08/2025 1:00 PM EDT Nutrition [facility] DIABETES/NUTRITION [address] [place] [address] [place] [address] 03/02/2025 9:15 AM EDT Office Visit [facility] CHC MED & PEDS [address] [place] [address] Africa Holman MD [address] [place] [address] documented as of this encounter Visit Diagnoses Not on filedocumented in this encounter Additional Health Concerns Assessment Noted Time PHQ-9 Depression Total Score: 2 02/14/20 24 10:30 AM EDT documented as of this encounter Care Teams Hotel Houseman Relationship Specialty Start Date End Date Africa Holman MD [address] [place] [address] PCP - General Family Medicine 11/05/20 documented as of this encounter
--- OUTSIDE RECORDS SUMMARY | 2024-12-08 13:24 | XMS_ITS | Encounter Summary ---
Author Organization [employer] Address [address] [place] [address] 7 [place] [address] Care Team Providers Care Aesthetician Name Role Phone Africa Holman MD Primary Care Provider [phone] Reason for Referral * Imaging (Routine) - Authorized Specialty Diagnoses / Procedures Referred By Orly [email or web address] Referred To Contact Radiology Diagnoses Fibroids Procedures Us Pelvis complete Raissa Cortes CNM [address] [place] [address] Phone: tel: fax: [facility] [address] [place] [address] Phone: tel: fax: Referral ID Status Reason Start Date Expiration Date V isits Requested Visits Authorized [id number] Authorized 12/05/2024 12/05/2025 1 1 * Imaging (Routine) - Authorized Specialty Diagnoses / Procedures Referred By Orly [email or web address] Referred To Contact Radiology Diagnoses Fibroids Procedures US Pelvis Transvaginal Raissa Cortes CNM [address] [place] [address] Phone: tel: fax: [facility] [address] [place] [address], [address] [address] Phone: tel: fax: Referral ID Status Reason Start Date Expiration Date V isits Requested Visits Authorized [id number] Authorized 12/05/2024 12/05/2025 1 1 Reason for Visit * Reason Comments Gynecologic Exam Encounter Details Date Type Department Care Team (Latest Contact Info) Description 12/05/2024 2:15 PM EST Procedure Visit [facility] MEDICINE [address] [place], [place] [phone] Raissa Cortes CNM [address] [place] [address] Cervical cancer screening (Primary Dx); Fibroids; Dysuria; [...] in this encounter Progress Notes * Raissa Cortes CNM - 12/05/2024 2:15 PM EST Subjective [...] Once per day. documented in this encounter Miscellaneous Notes * Result Encounter Note - Raissa Cortes CNM - 12/05/2024 2:15 PM EST Please let Tia know her urine showed mixed normal skin bacteria and low levels of GBS (group B strep). This isn't dangerous, but can sometimes cause UTIs. If she is still having urinary symptoms, please let me know and I will send in abx. Please also ask if she got her period today. If not, I want to repeat UA since there was some blood in her urine. Thanks! documented in this encounter Plan of Treatment Upcoming Encounters Date Type Department Care Team (Late st Contact Info) Description 01/08/2025 1:00 PM EDT Nutrition [facility] DIABETES/NUTRITION [address] [place], [place] [phone] Devora Kearney, LUCY [address] [place], [place] [phone] 03/02/2025 9:15 AM EDT Office Visit [facility] CHC MED & PEDS [address] [place] [address] Africa Holman MD [address] [place] [address] Pending Results Name Type Priority Associated Diagnoses Date /Time STI testing add on (NG, CT, Trich) Pathology and Cytology Routine Screening examination for venereal disease 12/05/2024 2:33 PM EST Scheduled Orders Name Type Priority Associated Diagnoses Orde r Schedule Hepatitis B Core Antibody, Total Lab Routine [...] Procedure Name Priority Date/Time Associated Diagnosis Comments CHLAMYDIA/N. GONORRHOEAE AND T. VAGINALIS RNA, QUAL,TMA Routine 12/05/2024 2:33 PM EST Screening examination for venereal disease PAP SMEAR Routine 12/05/2024 2:33 PM EST Cervical cancer screening POCT URINALYSIS DIPSTICK Routine 12/05/2024 2:23 PM EST Dysuria CULTURE, URINE, ROUTINE Routine 12/05/2024 2:17 PM EST Dysuria documented in this encounter Results * Pap Smear (12/05/2024 2:33 PM EST) Swab Cervix uteri structure / Unknown 12/05/2024 2:33 PM EST 12/06/2024 9:40 AM EST [facility] LABS - 12/08/2024 8:04 AM EST ----- ------- Name: Tia Moreira ? Age/Sex: 49/F ? : 1975 Unit#: [id number] ?? Attend Dr: RAISSA CORTES CNM ?Re12/05/24 ?Status: DEP REF ? [facility] ? Disch: ? ----- ------- SPEC : [id number] ? RECD: 12/06/24-939 ? STATUS: ??SOUT ? REQ NUM: [id number] ? ANDREAS: 12/05/24-1433 ? SUBM DR: RAISSA CORTES CNM ? ENTERED: ??12/06/24-1012 ?SP TYPE: Pap Smr ?OTHR DR: ? ORDERED: ??Pap Smear ? Interpretation ?? Satisfactory for evaluation. ?? Negative for intraepithelial lesion or malignancy. ?? No endocervical cells seen. ? HPV High Risk: ??Negative ? HPV Genotyping 16: ??Negative ?? HPV Genotyping 18: ??Negative ?Clinical Information LMP: Unknown date Previous PAP test: 2019, NIL HPV neg, Unknown findings ? Material Received ?? ThinPrep-Cervical ----- ------- Signed (signature on file) MARIE Pardo (ASCP) 12/08/24 0804 ? ----- ------- ? END OF REPORT ? Raissa Ute [facility] LAB CYTOLOGY ORDERABLES F inal Result [facility] [address] [place] [phone] * (ABNORMAL) POCT Urinalysis (12/05/2024 2:23 PM [...] Date Urine 12/05/2024 2:23 PM EST Raissa Ute [facility] POINT OF CARE TEST ENTER/ EDIT ORDERABLES Final Result * Culture, Urine, Routine (12/05/2024 2:17 PM EST) Urine Urine specimen obtained by clean catch procedure / Unknown 12/05/2024 2:17 PM EST 12/05/2024 4:47 PM EST Comment:[facility] Narrative [facility] - 12/07/2024 11:16 AM EST Urine Culture Report Result Urine Culture 50,000 to 100,000 cfu/ml Urine Culture Mixed bacterial luz characteristic of Urine Culture urogenital contamination. Strep agalactiae (Grp B) Quant < 10,000 cfu/mL Susc N/A Susceptibility not routinely performed on this isolate. Specimen Source: Urine clean catch Raissa Cortes CNM LAB MICROBIOLOGY - GENERA L ORDERABLES Final Result [facility] [address] [place] [address] [phone] documented in this encounter Visit Diagnoses Diagnosis Cervical cancer screening- Primary Screening for malignant neoplasm of the cervix Fibroids Leiomyoma of uterus, unspecified Dysuria Screening examination for venereal disease documented in this encounter Additional Health Concerns Assessment Noted Time PHQ-9 Depression Total Score: 2 02/14/20 24 10:30 AM EDT documented as of this encounter Care Teams Aesthetician Relationship Specialty Start Date End Date Africa Holman MD [address] [place] [phone] PCP - General Family Medicine 11/05/20 documented as of this encounter
--- OUTSIDE RECORDS SUMMARY | 2024-12-08 13:24 | XMS_ITS | Encounter Summary ---
Author Organization [employer] Address [address] [place] [address] Care Team Providers Care Equity Manager Name Role Phone Africa Holman MD Primary Care Provider [phone] Encounter Details Date Type Department Care Team [...] Info) Description 01/08/2025 1:00 PM EDT Nutrition [facility] DIABETES/NUTRITION [address] [place] [address] [place] [address] 03/02/2025 9:15 AM EDT Office Visit [facility] CHC MED & PEDS [address] [place] [address] Africa Holman MD [address] [place] [address] documented as of this encounter Visit Diagnoses Not on filedocumented in this encounter Additional Health Concerns Assessment Noted Time PHQ-9 Depression Total Score: 2 02/14/20 24 10:30 AM EDT documented as of this encounter Care Teams Equity Manager Relationship Specialty Start Date End Date Africa Holman MD [address] [place] [address] PCP - General Family Medicine 11/05/20 documented as of this encounter
--- OUTSIDE RECORDS SUMMARY | 2024-12-08 13:24 | XMS_ITS | Encounter Summary ---
Author Organization [employer] Address [address] [facility] [address] [place] [address] Care Team Providers Care Executive Chairman Name Role Phone Africa Holman MD Primary Care Provider [phone] Reason for Referral * Consultation (Routine) - Closed Specialty Diagnoses / Procedures Referred By Contedith ruvalcaba Referred To Contact Nutrition Diagnoses Adult BMI 40.0-44.9 kg/sq m (CMS/HCC) Africa Holman MD [address] [place] [address] Phone: tel: fax: Referral ID Status Reason Start Date Expiration Date V isits Requested Visits Authorized [id number] Closed Specialty Services Required 12/04/2024 12/04/2025 1 1 Encounter Details Date Type Department Care Team ([facility] st Contact Info) Description 12/04/2024 11:00 AM EST Office Visit [facility] CHC MED & PEDS [address] [place] [address] Africa Holman MD [address] [place] [address] Edema of extremities (Primary Dx); Acute pain [...] 12/04/2024 11:00 AM EST Subjective Patient ID: Tai Moreira is a 49 y.o. female who [...] Info) Description 01/08/2025 1:00 PM EDT Nutrition [facility] DIABETES/NUTRITION [address] [place] [address] Devora Kearney, LUCY [address] [place] [address] 03/02/2025 9:15 AM EDT Office Visit [facility] CHC MED & PEDS [address] [place], [place] [phone] Africa Holman MD [address] [place] [address] Scheduled Orders Name Type Priority Associated Diagnoses [...] documented as of this encounter Care Teams Executive Chairman Relationship Specialty Start Date End Date Africa Holman MD [address] [place] [address] PCP - General Family Medicine 11/05/20 documented as of this encounter"
--- OUTSIDE RECORDS SUMMARY | 2024-12-08 13:24 | XMS_ITS | Encounter Summary ---
Author Organization [employer] Address [address] [facility] [address] [place] [address] Care Team Providers Care Oil Rig Driller Name Role Phone Africa Holman MD Primary Care Provider Reason for Referral * Consultation (Urgent) - Pending Review Specialty Diagnoses / Procedures Referred By Orly [email or web address] Referred To Contact Nutrition Diagnoses Overweight Africa Holman MD [address] [place] [address] Phone: tel: fax: Referral ID Status Reason Start Date Expiration Date Visits Requested Visits Authorized [id number] Pending Review Specialty Services Required 12/06/2024 12/06/2025 1 1 Encounter Details Date Type Department Care Team ([facility] st Contact Info) Description 12/06/2024 Orders Only [facility] CHC MED & PEDS [address] [place] [address] Africa Holman MD [address] [place] [address] Overweight (Primary Dx) Social History Tobacco Use Types [...] Info) Description 01/08/2025 1:00 PM EDT Nutrition [facility] DIABETES/NUTRITION [address] [place] [address] [place] [address] 03/02/2025 9:15 AM EDT Office Visit [facility] CHC MED & PEDS [address] [place] [address] Africa Holman MD [address] [place] [address] Scheduled Referrals Name Type Priority Associated Diagnoses Orde r Schedule Referral to Nutrition Services Outpatient Referral Urgent Overweight Expected: 12/06/2024 (Approximate), Expires: 12/06/2025 documented as of this encounter Visit Diagnoses Diagnosis Overweight- Primary documented in this encounter Additional Health Concerns Assessment Noted Time PHQ-9 Depression Total Score: 2 02/14/20 24 10:30 AM EDT documented as of this encounter Care Teams Oil Rig Driller Relationship Specialty Start Date End Date Africa Holman MD [address] [place] [address] PCP - General Family Medicine 11/05/20 documented as of this encounter
--- OUTSIDE RECORDS SUMMARY | 2024-12-08 13:24 | XMS_ITS | Clinical Summary ---
Author Organization [employer] Address [address] [place] [address] Care Team Providers Care Station Installer And Repairer Name Role Phone Africa Holman MD Primary Care Provider [phone] Allergies No known active allergies Medications hydroCHLOROthi [...] 30 tablet 11 12/05/19 25 026 Active nitrofurantoin , macrocrystal-m onohydrate, (Macrobid) 100 MG capsule Take 1 capsule (100 mg) by mouth 2 times daily for 7 days. 14 capsule 12/08/19 25 025 Active naproxen (Naprosyn) 500 MG tabletIndicati ons:Acute [...] Encounters Date Type Department Care Team Description 12/08/2024 Orders Only [address] [address] Ottoniel Cortes CNM Hematuria, microscopic (Primary Dx) 12/07/[address] [address] Stephany Barron, RN Results 12/06/2024 Orders Only [facility] [address] [place] [address] Africa Holman MD Overweight (Primary Dx) 12/05/2024 2:15 PM EST Procedure Visit [address] [address] Ottoniel Cortes CNM Cervical cancer screening (Primary Dx); Fibroids; Dysuria; Screening examination for venereal disease 12/05/[address] [address] Devora Kearney, LUCY Referral 12/05/2024 Travel 12/04/2024 11:00 AM EST Office Visit [facility] [address] [place] [address] Africa Holman MD Edema of extremities (Primary Dx); Acute pain of right knee; Adult BMI 40.0-44.9 kg/sq m ([facility]) 12/04/2024 Travel 11/03/[address] [address] Kailyn Mccollum, RN Results 11/01/2024 2:40 PM EST Office Visit [facility] [address] [place] [address] Travis Ley MD Acute pain of right knee (Primary Dx); Dietary counseling; Exercise counseling; Class 3 severe obesity due to excess calories with serious comorbidity and body mass index (BMI) of 45.0 to 49.9 in adult ([facility]) 11/01/2024 Travel 10/31/2024 Telephone [facility] [address] [place], [place] [phone] Africa Holman MD Nurse Triage 10/09/2024 Telephone [facility] [address] [place] [address] Angélica Gomez MA from Last 3 Months Immunizations Name Administration Dates Next Due Hep A, Adult 06/16/2001,12/03/2000 Hep B, adult 04/11/2014, 4,09/11/2013,2000,01/05/2001,12/03/2000 Influenza Whole 07/27/2012 Influenza injectable quadriv alent preservative free 06/19/2022,10/07/2021,07/26/2020 Influenza, IIV3, injectable 07/12/2019,1 ,06/29/2017,2012,09/18/2010,12/03/2009 Novel [id number], preservative-free 12/03/2009 TD (adult), 2 Lf tetanus [...] your housing situation today? I have gurpreet sing 02/07/[address] you li [...] Info) Description 01/08/2025 1:00 PM EDT Nutrition [facility] DIABETES/NUTRITION [address] [place], [place] [phone] Devora [address] [place] [address] 03/02/2025 9:15 AM EDT Office Visit [facility] [address] [place] [address] Africa Holman MD [address] [place] [address] Health Maintenance Due Date Last Done Comments CT Colonography 1975 Colonoscopy 1975 Colorectal Cancer Screening 1975 FIT DNA/Cologuard 1975 FIT 1975 FOBT 1975 Sigmoidoscopy 1975 Hepatitis C Screening 1994 Influenza Vaccine (#1) 2024 , 10/07/2021, 07/26/2020, Additional history exists HPV/Cotest 11/29/2024 11/29/2019 Depression Screening 02/13/2025 02/14/2024, 02/14/20 Alcohol/Substance Use Screening 12/04/2025 12/04/2024 COVID-19 Vaccine ( season) 2025 10/07/2021, 03/17/2021, 02/17/2021 Postponed from 06/11/2024 (Patient Refused) SDOH Screening 12/04/2025 12/04/2024 Family Planning (PISQ) 12/05/2025 12/05/2024 Tobacco Screening 12/05/2025 12/05/2024 Mammogram 03/17/2026 03/17/2024 Zoster Vaccines (1 of 2) 2026 Lipid Panel 06/19/2027 06/19/2022 Cervical Cancer Screening 12/05/2027 Pap Smear 12/05/2027 12/05/2024 DTaP/Tdap/Td Vaccines (3 - Td or Tdap) [...] ROUTINE Routine 12/05/2024 2:17 PM EST Dysuria XR KNEE 3 VIEWS RIGHT Routine 11/03/2024 12:45 PM EST Acute pain of right knee BI MAMMOGRAM SCREENING TOMOSYNTHESIS BILATERAL Routine 03/17/2024 10:35 AM EDT LIPID PANEL, STANDARD Routine 06/19/2022 11:06 AM EDT [facility] HISTORICAL HPV MRNA E6/E7 Routine 11/29/2019 8:50 AM EST [facility] HISTORICAL HIV AB/AG Routine 10/23/2019 3:53 PM EST from Last 3 Months or Most Recently Relevant to Health Maintenance Results * Pap Smear (12/05/2024 2:33 PM EST) Swab Cervix uteri structure / Unknown 12/05/2024 2:33 PM EST 12/06/2024 9:40 AM EST Narrative [facility] - 12/08/2024 8:04 AM EST ----- ------- Name: Tia Moreira ? Age/Sex: 49/F ? : 1975 Unit#: [id number] ?? Attend Dr: OTTONIEL CORTES CNM ?Re12/05/24 ?Status: DEP REF ? [facility] ? Disch: ? ----- ------- SPEC : [id number] ? RECD: 12/06/24-939 ? STATUS: ??SOUT ? REQ NUM: [id number] ? ANDREAS: 12/05/24-1432 ? SUBM DR: OTTONIEL CORTES CNM ? ENTERED: ??12/06/24-1012 ?SP TYPE: Pap Smr ?OTHR : ? ORDERED: ??Pap Smear ? Interpretation ?? Satisfactory for evaluation. ?? Negative for intraepithelial lesion or malignancy. ?? No endocervical cells seen. ? HPV High Risk: ??Negative ? HPV Genotyping 16: ??Negative ?? HPV Genotyping 18: ??Negative ?Clinical Information LMP: Unknown date Previous PAP test: 2020, NIL HPV neg, Unknown findings ? Material Received ?? ThinPrep-Cervical ----- ------- Signed (signature on file) MARIE Pardo (ASCP) 12/08/24 0804 ? ----- ------- ? END OF REPORT ? [facility] CYTOLOGY ORDERABLES F inal Result Performing Organization Address [facility] Co de Phone Number [facility] [address] [place] [phone] * (ABNORMAL) POCT Urinalysis (12/05/2024 2:23 [...] Expiration Date Urine 12/05/2024 2:23 PM EST Result [facility] POINT OF CARE TEST ENTER/ EDIT ORDERABLES Final Result * Culture, Urine, Routine (12/05/2024 2:17 PM EST) Urine Urine specimen obtained by clean catch procedure / Unknown 12/05/2024 2:17 PM EST 12/05/2024 4:47 PM EST Comment:UACC Narrative [facility] - 12/07/2024 11:16 AM EST Urine Culture Report Result Urine Culture 50,000 to 100,000 cfu/ml Urine Culture Mixed bacterial luz characteristic of Urine Culture urogenital contamination. Strep agalactiae (Grp B) Quant < 10,000 cfu/mL Susc N/A Susceptibility not routinely performed on this isolate. Specimen Source: Urine clean catch [facility] MICROBIOLOGY - GENERA L ORDERABLES Final Result Performing Organization Address [facility] de Phone Number [facility] [address] [facility] [place] [phone] * XR Knee 3 Views Right (11/03/2024 12:45 PM EST) Anatomical Region Laterality Modality Lower Extremities, Knee Right Radiogra phic Imaging 11/03/2024 12:4 5 PM EST Narrative 11/03/2024 1:17 PM EST ?[facility] ?[address] ?[place] [address] ?XRay Report ? Signed ? Patient: Tia Moreira L ?MR#: [id number] ?? 47 ? : 1975 ?Acct:[id number] ? Age/Sex: 49 / F ?ADM Date: 11/03/24 ? Loc: HO.HHCX ? Attending Dr: Travis Ley MD ? Ordering Physician: Travis Ley MD ?? Date of Service: 11/03/24 ?? Procedure(s): XR knee RT 3V ?? Accession Number(s): [id number] ? cc: Travis Ley MD ? EXAMINATION: [...] DD/ 1245 ? TD/TT: 11/03/24 1256 ? Chief Operating Engineer: ? Procedure Note Donotuseinterpreter, Image - 11/03/[address] [address] XRay Report Signed Patient: Tia Moreira LMR#: [id number] 47 : 1975Acct:[id number] Age/Sex: 49 / FADM Date: 11/03/24 Loc: HO.HHCX Attending Dr: Travis Ley MD Ordering Physician: Travis Ley MD Date of Service: 11/03/24 Procedure(s): XR knee RT 3V Accession Number(s): [id number] cc: Travis Ley MD EXAMINATION: XR KNEE, [...] suprapatellar joint effusion. Electronically signed by: Elder eMndoza MD 11/03/2024 01:15 PM [facility] Dictated By: Elder Mendoza MD Signed By: <Electronically signed by Elder Mendoza MD in OV> 11/03/24 1315 DD/ 1245 TD/TT: 11/03/24 1256 Chief Operating Engineer: us Travis Ley MD IMG XR PROCEDURES Final Res ult * BI Mammogram Screening Tomosynthesis Bilateral (03/17/2024 10:35 AM EDT) Anatomical Region Laterality Modality Breast Bilateral Mammography 03/17/2024 10:3 5 AM EDT Narrative 04/11/2024 8:36 AM EDT ? [facility] ? [address] ?[place] [address] ? Mammography Report ? Signed ? Patient: Harish,Tia L ?MR#: [id number] ?? 47 ? : 1975 ?Acct:[id number] ? Age/Sex: 48 / F ?ADM Date: 03/17/24 ? Loc: HO.MAMMO ? Attending Dr: Stephany Anderson CNM ? Ordering Physician: Stephany Anderson CNMery ?Results: 1Negati ?? ve ? Date of Service: 03/17/24 ?Follow Up: 1 Year From Orig ?? inal Mammogram ? Procedure(s): MM tomosynthesis screening BI ?? Accession Number(s): [id number] ? cc: Stephany Anderson CNM; Africa Holman [...] by Ninoska Fernandez MD in OV> ? 04/11/[address]31 ? DD/ 1035 ? TD/TT: ? Chief Operating Engineer: ? Procedure Note Zee Infante - 04/11/2024 [facility] [address] [place], [place] [address] Mammography Report Signed Patient: Tia Moreira LMR#: [id number] 47 : 1975Acct:[id number] Age/Sex: 48 / FADM Date: 03/17/24 Loc: HO.MAMMO Attending Dr: Stephany Anderson CNM Ordering Physician: Stephany Andersonesults: 1Negati ve Date of Service: 03/17/24Follow Up: 1 Year From Orig inal Mammogram Procedure(s): MM tomosynthesis screening BI Accession Number(s): [id number] cc: Stephany Anderson CNM; Africa Holman MD [...] in OV> 04/11/24 0832 DD/ 1035 TD/TT: Chief Operating Engineer: [facility] External Provider IMG BI PROCEDURES Edited [...] ?? LDL-C is now calculated using the Indira ?? calculation, which is a validated novel method providing ?? better accuracy than the Friedewald equation in the ?? estimation of LDL-C. ?? Tony FAROOQ et al. KINDRA. 2013;310(19): 7789-9027 ?? (http://education.[employer].com/faq/SZG903) Non-HDL Cholesterol 136(H) <130 mg/dL (calc) [facility] Comment: For patients with diabetes plus 1 major ASCVD risk ?? factor, treating to a non-HDL-C goal of <100 mg/dL ?? (LDL-C of <70 mg/dL) is considered a therapeutic ?? option. Triglycerides 84 <150 mg/dL [facility] 06/19/2022 11:0 6 AM EDT us Africa Holman MD LAB BLOOD ORDERABLES Final Resul t Performing Organization Address [facility]/ZIP Co de Phone Number [facility] [address] [place] [address], * HPV mRNA E6/E7 (11/29/2019 8:50 AM EST) HPV mRNA E6/E7 Not Detected NOT DETECTED [facility] Comment: This test was performed using the APTIMA(R) HPV Assay ([employer] This assay detects E6/E7 viral messenger RNA (mRNA) from 14 high-risk HPV types (16,18,31,33,35,39,45,51, 52,56,58,59,66,68). For additional information please refer to: http://education.[employer]/faq/FYR194v0 (This link is being provided for informational/ educational purposes only.) The analytical performance characteristics of this assay have been determined by [employer] [place], [place]. The modifications have not been cleared or approved by the FDA. This assay has been validated pursuant to the CLIA regulations and is used for clinical purposes. Test Performed by [facility], [email or web address] [facility], [address] [place] [address] Amilcar Alston M.D., Ph.D., Director of Laboratories , CLIA [id number] Please note: ??Effective 06/22/2016, HPV testing will be performed using [employer] APTIMA test which targets mRNA. Detecting mRNA instead of DNA, as in older methods, offers significant improvements in specificity. 11/29/2019 8:50 AM EST us Ottoniel Cortes CNM HISTORICAL/NON ORDERABLE LABS Final Result Performing Organization Address [facility]/ZIP Co de Phone Number [facility] [address] [place] [address], * HIV AB/AG (10/23/2019 3:53 PM EST) [facility] HIV AG/AB NONREACTIVE NR [facility] [...] detection of this assay. ?? The [employer] Claim Adjuster HIV Ag/Ab Combo assay result and supplemental assay results should be interpreted in conjunction with the patient's clinical presentation, history and other laboratory results. ??If the results are inconsistent with clinical evidence, additional testing is suggested to confirm the result. 10/23/2019 3:53 PM EST us Romario Marie MD HISTORICAL/NON ORD ERABLE LABS Final Result Performing Organization Address City/State/[facility] Co de Phone Number [facility] [address] from Last 3 Months or Most Recently Relevant to Health Maintenance Insurance [facility] C3 Care Teams Station Installer And Repairer Relationship Specialty Start Date End Date Africa Holman MD [address] [place] [phone] PCP - General Family Medicine 11/05/20
[2024-12-08 14:45] LABS: Appearance Urine Turbid; Color Urine Yellow; Glucose Urine UA Negative (Negative); Leukocyte Esterase Urine Negative (Negative); Nitrite Urine Negative (Negative); PH 5.5 (5.0-9.0); Specific Gravity - Urine 1.025 (1.005-1.025); UMIC TRIGGER UA YES; Urine Blood Trace (Negative); Urine Ketones Negative (Negative); Urine Protein Negative (Neg-Trace)
[2024-12-08 14:50] LABS: Bacteria Urine 1+ (None Seen); Hyaline Casts Urine 0-2 /LPF (0-2); RBC Urine 0-2 /HPF (0-2); WBC Urine 0-5 /HPF (0-5)
[2024-12-08 18:50] LABS: Alanine Aminotransferase 21 U/L (0-31); Albumin Level 4.1 g/dL (3.5-5.0); Alkaline Phosphatase 77 U/L (39-117); Anion Gap 13 (12-20); Aspartate Amino Transferase 30 U/L (5-31); Bilirubin Direct 0.2 mg/dL (0.0-0.5); Bilirubin Total 0.6 mg/dL (0.0-1.0); Blood Urea Nitrogen 12 mg/dL (9-16); Calcium 9.2 mg/dL (8.4-10.2); Carbon Dioxide 23 mmol/L (22-29); Chloride 108 mmol/L (96-108); Cholesterol 210 mg/dL (<200); Estimated Glomerular Filt Rate > 60; Glucose Random 93 mg/dL (60-115); HDL Cholesterol 32 mg/dL (>40); LDL Cholesterol Calculated 156 mg/dL (<100); Potassium 4.1 mmol/L (3.3-5.1); Sodium 140 mmol/L (135-145); Total Protein 7.7 g/dL (6.5-8.0); Triglycerides 112 mg/dL (<150)
[2024-12-11 08:45] LABS: HBc Num1 0.08 S/CO (0.00-0.79); HBsAGNum1 0.41 S/CO (0.00-0.99); HIV AB/AG Nonreactive (Nonreactive); HIV Num 1 0.06 S/CO (0.00-0.99); Hepatitis B Core Antibody Nonreactive (Nonreactive); Hepatitis B Surface Antigen Negative (Negative); ~HepC Num1 0.15 S/CO (0.00-0.79); ~Hepatitis B Surface Antibody NONREACTIVE (Nonreactive); ~Hepatitis C Antibody Nonreactive (Nonreactive)
[2024-12-11 09:19] LABS: Syphilis Screen Nonreactive (Nonreactive)
== END 2024-12-08 11:17 | disposition home or self-care (01) ==
LOC: HO.CHCLDS 11:16
PROVIDERS: PCP Student in an Organized Health Care Education/Training Program; Referring Provider Advanced Practice Midwife; Visit Provider Student in an Organized Health Care Education/Training Program
DX: Z11.3 Encounter for screening for infections with a predominantly sexual mode of transmission (principal); R31.29 Other microscopic hematuria; R60.0 Localized edema
CPT/HCPCS: 36415; 80048; 80061; 80076; 81001; 86704; 86706; 86780; 86803; 87340; 87389

== ENCOUNTER 2024-12-25 14:06 | Outpatient (REF) | payer MEDICAID, SELFPAY ==
[2024-12-25 17:13] LABS: Appearance Urine Clear; Color Urine Yellow; Glucose Urine UA Negative (Negative); Leukocyte Esterase Urine Negative (Negative); Nitrite Urine Negative (Negative); PH 6.5 (5.0-9.0); Urine Blood Negative (Negative); Urine Ketones Negative (Negative); Urine Protein Negative (Neg-Trace)
[2024-12-25 17:20] LABS: Bacteria Urine 1+ (None Seen); Hyaline Casts Urine 0-2 /LPF (0-2); RBC Urine 0-2 /HPF (0-2); WBC Urine 0-5 /HPF (0-5)
== END 2024-12-25 14:07 | disposition home or self-care (01) ==
LOC: HO.HHCL 14:06
PROVIDERS: Visit Provider Advanced Practice Midwife
DX: R30.0 Dysuria (principal)
CPT/HCPCS: 81001

== ENCOUNTER 2025-02-16 11:13 | Outpatient (REF) | payer MEDICAID, SELFPAY ==
--- OUTSIDE RECORDS SUMMARY | 2025-02-16 11:42 | XMS_ITS | Clinical Summary ---
Author Organization [email or web address] Address [address] [facility] [place] [address] Care Team Providers Care Audit Practice Intern Name Role Phone Africa Holman MD Primary Care Provider [phone] Allergies No known active allergies Medications hydroCHLOROthia zide (HYDRODiuril) 25 MG tablet Take 1 tablet by mouth every 12 (twelve) hours. 2 Active Diclofenac Sodium (Voltaren) 1 % gel Use topical BID 100 g 3 5 Active capsaicin (Capzasin-HP) 0.1 % cream Apply topically 2 times daily. 60 g 3 5 Active valACYclovir (Valtrex) 500 MG tablet Take 1 tablet (500 mg) by mouth Once per day. 30 tablet 11 5 12/05/19 26 Active lidocaine (Lidoderm) 5 % patch Apply 1 patch topically Once per day. Remove & discard patch within 12 hours or as directed by . 15 patch 2 5 Active acetaminophen (Tylenol Extra Strength) 500 MG tablet Take 1 tablet (500 mg) by mouth every 6 (six) hours if needed for mild pain. 90 tablet 3 5 02/14/20 26 Active Active Problems Problem Noted Date Diagnosed Date Hyperhidrosis of axilla 02/14/2024 Genital herpes simplex 02/14/2024 Adult BMI 40.0-44.9 kg/sq m 02/14/2024 Internal hemorrhoids 02/14/2024 Polyp of colon 02/14/2024 Morbid obesity 02/14/2024 Obstructive sleep apnea syndrome 12/31/2022 Edema of extremities 12/31/2022 Diverticulosis of sigmoid colon 12/31/2022 Carpal tunnel syndrome 12/31/2022 Encounters Date Type Department Care Team Description 02/13/2025 2:30 PM EDT Clinical Support [facility] DIABETES/NUTRITION [address] [place] [address] Over weight (Primary Dx) 02/13/2025 Travel 02/13/2025 Orders Only [facility] CHC MED & PEDS [address] [place] [address] Africa Holman MD 02/01/2025 Telephone [facility] [place] [address] Africa Holman MD Medication Question 01/23/2025 2:00 PM EDT Clinical Support [facility] DIABETES/NUTRITION [address] [facility] [place] [address] Overweight (Primary Dx) 01/23/2025 Travel 01/08/2025 1:00 PM EDT Nutrition [facility] DIABETES/[place] [address] Overweight (Primary Dx) 01/08/2025 Travel 12/27/2024 Telephone [facility] [place] [address] Ottoniel Cortes CNM Results 12/25/2024 Telephone [facility] [place] [address] Stephany Barron RN Results 12/22/2024 Population Health Risk Score [facility] Department [address] [phone] Provider, Population Health Generic 12/15/2024 Orders Only [facility] [place] [address] Ottoniel Cortes CNM Dysuria (Primary Dx); Herpes 12/14/2024 Telephone [facility] [place] [address] Africa Holman MD Results; Lab Orders 12/14/[address] [address] Africa Holman MD Lab Orders 12/08/2024 Orders Only [address] [address] Ottoniel Cortes CNM Hematuria, microscopic (Primary Dx) 12/07/[address] [address] Stephany Barron RN Results 12/06/2024 Orders Only [facility] MED & PEDS [address] [place] [address] Africa Holman MD Overweight (Primary Dx) 12/05/2024 2:15 PM EST Procedure Visit [address] [address] Ottoniel Cortes CNM Cervical cancer screening (Primary Dx); Fibroids; Dysuria; Screening examination for venereal disease 12/05/2024 Orders Only [address] [address] Ottoniel Cortes CNM 12/05/[address] [address] Devora Kearney, LUCY Referral 12/05/2024 Travel 12/04/2024 11:00 AM EST Office Visit [facility] MED & PEDS [address] [place] [address] Africa Holman MD Edema of extremities (Primary Dx); Acute pain of right knee; Adult BMI 40.0-44.9 kg/sq m ([facility]) 12/04/2024 Travel from Last 3 Months Immunizations Name Administration Dates Next Due Hep A, Adult 06/16/2001,12/03/2000 Hep B, adult 04/11/2014, 4,09/11/2013,2000,01/05/2001,12/03/2000 Influenza Whole 07/27/2012 Influenza injectable quadriv alent preservative free 06/19/2022,10/07/2021,07/26/2020 Influenza, IIV3, injectable 07/12/2019,1 ,06/29/2017,2012,09/18/2010,12/03/2009 Novel [id number], preservative-free 12/03/2009 TD (adult), 2 Lf tetanus [...] Oxygen Concentration - - Weight 150 kg (330 lb 9.6 oz) 02/15/2025 3:47 PM EDT Height 175.3 cm (5' 9 ) 02/15/2025 3:47 PM EDT Body Mass Index 48.82 02/15/2025 3:47 PM EDT Plan of Treatment Upcoming Encounters Date Type Department Care Team (Late st Contact Info) Description 03/02/2025 9:15 AM EDT Office Visit [facility] CHC MED & PEDS [address] [place] [address] Africa Holman MD [address] [place] [address] 03/19/2025 3:00 PM EDT Clinical Support [facility] DIABETES/NUTRITION [address] [place] [address] Devora Kearney, LUCY [address] [place] [address] Health Maintenance Due Date Last Done Comments CT Colonography 1975 Colonoscopy 1975 Colorectal Cancer Screening 1975 FIT DNA/Cologuard 1975 FIT 1975 FOBT 1975 Sigmoidoscopy 1975 Influenza Vaccine (#1) 2024 , 10/07/2021, 07/26/2020, Additional history exists Depression Screening 02/13/2025 02/14/2024, 02/14/20 24 Alcohol/Substance Use Screening 12/04/2025 12/04/2024 COVID-19 Vaccine ( season) 2025 10/07/2021, 03/17/2021, 02/17/2021 Postponed from 06/11/2024 (Patient Refused) SDOH Screening 12/04/2025 12/04/2024 Family Planning (PISQ) 12/05/2025 12/05/2024 Tobacco Screening 12/05/2025 12/05/2024 Mammogram 03/17/2026 03/17/2024 Zoster Vaccines (1 of 2) 2026 Cervical Cancer Screening 12/05/2029 HPV/Cotest 12/05/2029 12/05/2024, 11/29/2019 Pap Smear 12/05/2029 12/05/2024 Lipid Panel 12/08/2029 12/08/2024, 06/19/2022 DTaP/Tdap/Td Vaccines (3 - Td or Tdap) 01/17/2031 01/17/2021, 06/08/2013, 10/26/2006 RSV Patients and Patients Aged 60 years or older (1 - 1-dose 75+ series) 2051 Hepatitis A Vaccines Aged Out 06/16/2001, 12/03/19 01 No longer eligible based on patient's age to complete this topic Hepatitis B Vaccines Completed 04/11/2014, 10/12/2013, 09/11/2013, Additional history exists HIV Screening Completed 12/08/2024, 10/23/2019 Hepatitis C Screening Completed 12/08/2024 HIB Vaccines Aged Out No longer eligi [...] Procedure Name Priority Date/Time Associated Diagnosis Comments URINALYSIS, COMPLETE Routine 12/25/2024 2:10 PM EDT Dysuria US PELVIS COMPLETE Routine 12/25/2024 Fibroids US PELVIS TRANSVAGINAL Routine 12/25/2024 Fibroids URINALYSIS, COMPLETE Routine 12/08/2024 11:30 AM EST Hematuria, microscopic HEPATIC FUNCTION PANEL Routine 11:30 AM EST Edema of extremities LIPID PANEL, STANDARD Routine 12/08/2024 11:30 AM EST Edema of extremities BASIC METABOLIC PANEL Routine 12/08/2024 11:30 AM EST Edema of extremities SYPHILIS SCREEN Routine 12/08/2024 11:20 AM EST Screening examination for venereal disease HIV 1/2 ANTIGEN/ANTIBODY, FOURTH GENERATION W/RFL Routine 12/08/2024 11:20 AM EST Screening examination for venereal disease HEPATITIS C AB W/REFL TO HCV RNA, QN, PCR Routine 12/08/2024 11:20 AM EST Screening examination for venereal disease HEPATITIS B SURFACE ANTIGEN, EIA Routine 12/08/2024 11:20 AM EST Screening examination for venereal disease HEPATITIS B SURFACE ANTIBODY, QUALITATIVE Routine 12/08/2024 11:20 AM EST Screening examination for venereal disease HEPATITIS B CORE AB TOTAL Routine 12/08/2024 11:20 AM EST Screening examination for venereal disease CHLAMYDIA/N. GONORRHOEAE AND T. VAGINALIS RNA, QUAL,TMA Routine 12/05/2024 2:33 PM EST Screening examination for venereal disease PAP SMEAR Routine 12/05/2024 2:33 PM EST Cervical cancer screening HPV DNA, LOW/HIGH RISK Routine 2:33 PM EST POCT URINALYSIS DIPSTICK Routine 12/05/2024 2:23 PM EST Dysuria CULTURE, URINE, ROUTINE Routine 12/05/2024 2:17 PM EST Dysuria BI MAMMOGRAM SCREENING TOMOSYNTHESIS BILATERAL Routine 03/17/2024 10:35 AM EDT from Last 3 Months or Most Recently Relevant to Health Maintenance Results * Urinalysis Complete (12/25/2024 2:10 PM EDT) Only the most recent of2 resultswithin the time period is included. Color Urine Yellow [facility] Appearance Urine Clear [facility] PH 6.5 5.0 - 9.0 [facility] Glucose Urine UA Negative Negative mg/dL [facility] Urine Blood Negative Negative [facility] Specific O'Brien - Urine 1.020 1.005 - 1.025 [facility] Urine Protein Negative Neg-Trace mg/dL [facility] Urine Ketones Negative Negative mg/dL [facility] Nitrite Urine Negative Negative [facility] Leukocyte Esterase Urine Negative Negative [facility] RBC Urine 0-2 0 - 2 /HPF [facility] Urine WBC 0-5 0 - 5 /HPF [facility] Urine Squamous Epithelial Cell 6-10 0 - 2 /HPF [facility] Urine Bacteria 1+ None Seen [facility] Hyaline Casts, Urine 0-2 0 - 2 /LPF [facility] Urine (Urine, Random) 12/25/2024 2:10 PM EDT 12/25/2024 4:39 PM EDT us Ottoniel Cortes CNM LAB URINE ORDERABLES Medina zapata Result [facility] [address] [place] [address] [phone] * Us Pelvis complete (12/25/2024) Anatomical Region Laterality Modality Pelvis Ultrasound Ottoniel Cortes [facility] IMG US PROCEDURES Final R esult * US Pelvis Transvaginal (12/25/2024) Anatomical Region Laterality Modality Pelvis Ultrasound Ottoniel Cortes [facility] IMG US PROCEDURES Final R esult * Hepatic Function Panel (12/08/2024 11:30 AM EST) Bilirubin, Total 0.6 0.0 - 1.0 mg/dL [facility] Bilirubin, Direct 0.2 0.0 - 0.5 mg/dL [facility] Aspartate Amino Transferase 30 5 - 31 U/L [facility] Alanine Aminotransferase 21 0 - 31 U/L [facility] Total Protein 7.7 6.5 - 8.0 g/dL [facility] Albumin Level 4.1 3.5 - 5.0 g/dL [facility] Alkaline Phosphatase 77 39 - 117 U/L [facility] Blood Venous blood specimen / Unknown 12/08/2024 11:30 AM EST 12/08/2024 2:33 PM EST Result [facility] Africa Holman MD LAB BLOOD ORDERABLES Final Resul t [facility] [address] [place] [phone] * (ABNORMAL) Lipid Panel, Standard (12/08/2024 11:30 AM EST) Triglycerides 112 <150 mg/dL [facility] Comment:Desirable Triglyceri de: less than 150 mg/dLBorderline High Triglyceride 150-199 mg/dLHigh Triglyceride: 200-499 mg/dLVery High Triglyceride: greater than or equal to 5OO mg/dL Cholesterol 210(H) <200 mg/dL [facility] Comment:Desirable Cholestero l: less than 200 mg/dLBorderline High Cholesterol: 200-239 mg/dLHigh Cholesterol: greater than 239 mg/dL LDL Cholesterol Calculated 156(H) <100 mg/dL [facility] Comment:Desirable LDL: less than 100 mg/dLNear Optimal/Above Optimal LDL: 110- 129 mg/dLBorderline High LDL: 130-159 mg/dLHigh LDL: 160-189 mg/dLVery High LDL: greater than or equal to 190 mg/dL HDL Cholesterol 32(L) >40 mg/dL [facility] Comment:Desirable HDL: great er than 40 mg/dL Note: This HDL assay may give artificially low results in patients with liver disease. Blood Venous blood specimen / Unknown 12/08/2024 11:30 AM EST 12/08/2024 2:33 PM EST Africa Holman MD LAB BLOOD ORDERABLES Final Resul t [facility] [address] [place] [address] [phone] * Basic Metabolic Panel (12/08/2024 11:30 AM EST) Sodium 140 135 - 145 mmol/L [facility] Potassium 4.1 3.3 - 5.1 mmol/L [facility] Chloride 108 96 - 108 mmol/L [facility] Carbon Dioxide 23 22 - 29 mmol/L [facility] Anion Gap 13 12 - 20 [facility] Urea Nitrogen (BUN) 12 9 - 16 mg/dL [facility] Creatinine, Serum 0.69 0.5 - 1.4 mg/dL [facility] Estimated Glomerular Filt Rate >60 [facility] Comment:Chronic Kidney Disea se: Estimated GFR < 60 mL/min/1.11m9Mopyxh Kidney Disease: Estimated GFR < 15 mL/min/1.73m2 Glucose 93 60 - 115 mg/dL [facility] Calcium 9.2 8.4 - 10.2 mg/dL [facility] Blood Venous blood specimen / Unknown 12/08/2024 11:30 AM EST 12/08/2024 2:33 PM EST Africa Holman MD LAB BLOOD ORDERABLES Final Resul t Performing Organization Address [facility] Co de Phone Number [facility] [address] [place] [address] [phone] * Syphilis Screen (12/08/2024 11:20 AM EST) Syphilis Screen Nonreactive Nonreactive [facility] Blood Venous blood specimen / Unknown 12/08/2024 11:20 AM EST 12/08/2024 2:33 PM EST Ottoniel Cortes [facility] LAB BLOOD ORDERABLES Medina l Result Performing Organization Address [facility] de Phone Number [facility] [address] [place] [phone] * Hepatitis C Antibody with Reflex to HCV, RNA, Quantitative, Real-Time PCR (12/08/2024 11:20 AM EST) Hepatitis C Antibody Nonreactive Nonreactive [facility] Comment:Antibodies to HCV no t detected; does not exclude early acuteHCV infection. Blood Venous blood specimen / Unknown 12/08/2024 11:20 AM EST 12/08/2024 2:33 PM EST Ottoniel Cortes [facility] LAB BLOOD ORDERABLES Medina l Result Performing Organization Address [facility] Co de Phone Number [facility] [address] [place] [phone] * Hepatitis B surface antigen, EIA (12/08/2024 11:20 AM EST) Pathologist [facility] Hepatitis B Surface Ag Negative Negative [facility] Blood Venous blood specimen / Unknown 12/08/2024 11:20 AM EST 12/08/2024 2:33 PM EST Ottoniel Cortes [facility] LAB BLOOD ORDERABLES Medina l Result Performing Organization Address [facility] Co de Phone Number [facility] [address] [place] [address] [phone] * Hepatitis B Core Antibody, Total (12/08/2024 11:20 AM EST) Hepatitis B Core Antibody Nonreactive Nonreactive [facility] Blood Venous blood specimen / Unknown 12/08/2024 11:20 AM EST 12/08/2024 2:33 PM EST Ottoniel Cortes [facility] LAB BLOOD ORDERABLES Medina l Result [facility] [address] [place] [phone] * HIV-1/2 Antigen and Antibodies, Fourth Generation, with Reflexes (12/08/2024 11:20 AM EST) HIV AB/AG Nonreactive Nonreactive [facility] Comment:HIV-1 p24 Ag and/or HIV-1/HIV-2 Ab not detected.A test result that is nonreactive does not exclude thepossibility of exposure to or infection with HIV-1 and/orHIV-2. Nonreactive results in this assay for individualswith prior exposure to HIV-1 and/or HIV-2 may be due toantigen and antibody levels that are below the limit ofdetection of this assay.The [address] HIV Ag/Ab Combo assay result andsupplemental assay results should be interpreted inconjunction with the patient's clinical presentation,history and other laboratory results. If the results areinconsistent with clinical evidence, additional testing issuggested to confirm the result. Blood Venous blood specimen / Unknown 12/08/2024 11:20 AM EST 12/08/2024 2:33 PM EST Ottoniel Cortes [facility] LAB BLOOD ORDERABLES Medina l Result [facility] [address] [place] [phone] * Hepatitis B Surface Antibody, Qualitative (12/08/2024 11:20 AM EST) ~Hepatitis B Surface Antibody NONREACTIVE Nonreactive [facility] Comment:Nonreactive: < 8.00 mIU/mL Blood Venous blood specimen / Unknown 12/08/2024 11:20 AM EST 12/08/2024 2:33 PM EST Ottoniel Ute [facility] LAB BLOOD ORDERABLES Medina zapata Result [facility] [address] [place] [address] [phone] * STI testing add on (NG, CT, Trich) (12/05/2024 2:33 PM EST) Pathologist [facility] Trichomonas (NAAT) NOT DETECTED [facility] Comment:REFERENCE RANGE: NOT DETECTEDThe analytical performance characteristics of thisassay, when used to test SurePath(TM) specimens have beendetermined by [employer]. The modifications havenot been cleared or approved by the FDA. This assay hasbeen validated pursuant to the CLIA regulations and isused for clinical purposes.For additional information, please refer tohttps://education.WineMeNow/faq/HID123(This link is being provided for information/educational purposes only.)For additional information, please refer tohttp://education.[employer].Yozio/faq/Trichomonastma(This link is being provided for informational/educational purposes only.)THIS TEST PERFORMED AT:[facility] [address] [phone] DIRECTOR: RAMY CHRISTIANSEN MD CTNG Ref Lab NOT DETECTED NOT DETECTED [facility] NG Ref Lab NOT DETECTED NOT DETECTED [facility] ThinPrep?? vial Cervix uteri structure / Unknown 12/05/2024 2:33 PM EST 12/06/2024 9:40 AM EST Narrative [facility] - 12/15/2024 1:12 PM EST Collection Date: [id number] by: RAJENDRA Batista: Cervix Ottoniel Cortes [facility] CYTOLOGY ORDERABLES F inal Result Performing Organization Address City/[facility]/ZIP Co de Phone Number [facility] [address] [place] [phone] * HPV DNA, Low/High Risk (12/05/2024 2:33 PM EST) HPV High Risk Negative Negative [facility] HPV Genotype 16 Negative Negative [facility] HPV Genotype 18 Negative Negative [facility] Comment:HPV testing performe d at [facility] (CLIA#[id number]), [address] [place] [address].Testing for HPV was performed using the Stephanie QUINTEN 6800system. The presence of HPV in the female genital tract isassociated with a number of diseases, including cervicalcarcinoma. The HPV DNA high risk pool tests for HPV 31, 33,35, 39, 45, 51, 52, 56, 58, 59, 66 and 68. The testing forHPV 16 and 18 genotypes has also been performed. A positiveresult indicates detection of nucleic acid sequences fromone or more subtypes, whereas a negative result indicatessuch sequences were not detected. 12/05/2024 2:33 PM EST 12/06/2024 9:40 AM EST Ottoniel Cortes [facility] LAB BLOOD ORDERABLES Medina l Result Performing Organization Address [facility]/ZIP Co de Phone Number [facility] [address] [place] [address] [phone] * Pap Smear (12/05/2024 2:33 PM EST) Swab Cervix uteri structure / Unknown 12/05/2024 2:33 PM EST 12/06/2024 9:40 AM EST Narrative [facility] - 12/08/2024 8:04 AM EST ----- ------- Name: Tia Moreira ? Age/Sex: 49/F ? : 1975 Unit#: [id number] ?? Attend Dr: OTTONIEL CORTES CNM ?Re12/05/24 ?Status: DEP REF ? [facility] ? Disch: ? ----- ------- SPEC : [id number] ? RECD: 12/06/24-939 ? STATUS: ??SOUT ? REQ NUM: [id number] ? ANDREAS: 12/05/24-1433 ? SUBM DR: OTTONIEL CORTES CNM ? [...] ----- ------- ? END OF REPORT ? us Ottoniel Cortes [facility] CYTOLOGY ORDERABLES F inal Result [facility] [address] [place] [address] [phone] * (ABNORMAL) POCT Urinalysis (12/05/2024 2:23 [...] Expiration Date Urine 12/05/2024 2:23 PM EST Ottoniel SWANSON POINT OF CARE TEST ENTER/ EDIT ORDERABLES Final Result * Culture, Urine, Routine (12/05/2024 2:17 PM EST) Urine Urine specimen obtained by clean catch procedure / Unknown 12/05/2024 2:17 PM EST 12/05/2024 4:47 PM EST Comment:UACC Narrative [facility] - 12/07/2024 11:16 AM EST Urine Culture Report Result Urine Culture 50,000 to 100,000 cfu/ml Urine Culture Mixed bacterial luz characteristic of Urine Culture urogenital contamination. Strep agalactiae (Grp B) Quant < 10,000 cfu/mL Susc N/A Susceptibility not routinely performed on this isolate. Specimen Source: Urine clean catch Ottoniel SWANSON LAB MICROBIOLOGY - GENERA L ORDERABLES Final Result [facility] [address] [place] [address] [phone] * BI Mammogram Screening Tomosynthesis Bilateral (03/17/2024 10:35 AM EDT) Anatomical Region Laterality Modality Breast Bilateral Mammography 03/17/2024 10:3 5 AM EDT Narrative 04/11/2024 8:36 AM EDT ? [facility] ? [address] ?[place] [address] ? Mammography Report ? Signed ? Patient: Harish,Tia L ?MR#: [id number] ?? 47 ? : 1975 ?Acct:[id number] ? Age/Sex: 48 / F ?ADM Date: 03/17/24 ? Loc: HO.MAMMO ? Attending Dr: Stephany Anderson CNM ? Ordering Physician: Stephany Anderson CNM ?Results: 1Negati ?? ve ? Date of Service: 03/17/24 ?Follow Up: 1 Year From Orig ?? inal Mammogram ? Procedure(s): MM tomosynthesis screening BI ?? Accession Number(s): [id number] ? cc: Stephany Anderson CNM; Africa Holman [...] 04/11/24831 ? DD/ 1035 ? TD/TT: ? Marketing Writer: ? Procedure Note Zee Infante - 04/11/2024 [facility] [address] [place] [address] Mammography Report Signed Patient: Tia Moreira LMR#: [id number] 47 : 1975Acct:[id number] Age/Sex: 48 / FADM Date: 03/17/24 Loc: HO.MAMMO Attending Dr: Stephany Anderson CNM Ordering Physician: Stephany Andersonesults: 1Negati ve Date of Service: 03/17/24Follow Up: 1 Year From [facility] Mammogram Procedure(s): MM tomosynthesis screening BI Accession Number(s): [id number] cc: Stephany Anderson CNM; Africa Holman MD [...] in OV> 04/11/24 0832 DD/ 1035 TD/TT: Marketing Writer: [facility] External Provider IMG BI PROCEDURES Edited Result - Final from Last 3 Months or Most Recently Relevant to Health Maintenance Insurance [id number] C3 Care Teams Audit Practice Intern Relationship Specialty Start Date End Date Africa Holman MD [address] [place] [address] [place] [address] PCP - General Family Medicine 11/05/20
--- OUTSIDE RECORDS SUMMARY | 2025-02-16 11:42 | XMS_ITS | Encounter Summary ---
Author Organization [employer] Address [address] [place] [address] Care Team Providers Care Personal Lines Sales Executive Name Role Phone Africa Holman MD Primary Care Provider [phone] Encounter Details Date Type Department Care Team (Latest Contact Info) Description 02/13/2025 2:30 PM EDT Clinical Support [facility] DIABETES/NUTRITION [address] [place], [place] [phone] Devora Kearney, RD [address] [place], [place] [phone] Over weight (Primary Dx) Social History Tobacco Use Types [...] Sign Reading Time Taken Comments Blood Pressure - - Pulse - - Temperature - - Respiratory Rate - - Oxygen Saturation - - Inhaled Oxygen Concentration - - Weight 150 kg (330 lb 9.6 oz) 02/15/2025 3:47 PM EDT Height 175.3 cm (5' 9 ) 02/15/2025 3:47 PM EDT Body Mass Index 48.82 02/15/2025 3:47 PM EDT documented in this encounter Progress Notes * Devora Kearney, LUCY - 02/13/2025 2:30 PM EDT In Person Visit Medical Diagnosis: E66.3 Overweight Anthropometrics: Ht:5' 9 (1.753 m), Wt:330 lb 9.6 oz (150 kg), BMI: Body mass index is 48.82 kg/m??. Assessment: Patient (Pt) accepted nutrition education assessment appointment with LUCY. RD took Pt's weight. Weight revealed a decrease of 1.6 pounds since last visit with LUCY. Today, RD finished nutrition education, portion control, explanation of carbohydrates, proteins andfats. In addition, RD used plastic food models to show portion control, plating of meals. RD wrote out a Tailored made menu plan for Pt with foods she likes to eat and foods RD suggested totry and Pt agreed to try them. Carbohydrate intake per day estimated to be: 6-8 servings per day with tailor made menu plan. A followed up appointment is scheduled in the second week of March 2025. 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 Pt agreed to take some time for herself and take acombination walk of about 30 minutes per day. Food Intolerance: None mentioned Food Preferences: Oatmeal, breads, pancakes, bagels, sweet cereals, eggs, ham, chicken, beef, corned beef, Spam, Organ protein shakes, coffee, water, noodles/ pasta, potatoes, carrots, cabbage, green beans, corn, broccoli, brussel sprouts, popcorn, potato chips, cheese, lettuce, ranch dressing, rice, garlic bread, cr eamora, sugar added into coffee, bananas, kiwis, grapes, oranges, apples, grapefruit, watermelon, blueberries- all berries Food Dislikes: Didn't say Frequency of Eating Out/ Restaurant: Didn't say; not the norm Who Cooks?: Patient How much caffeine?: coffee 4-6 cups /day How much sugary beverages?: Coffee, 1 teaspoon or so per cup of coffee. Diet History: Today, diet was not taken. Education was given. See note when diet was take on 01/08/2025. Nutrition Diagnosis: NI-1.5 Excessive energy intake related to food and knowledge deficit as evidence by 24 hour recall/typical daily intake and BMI >48. Initial Nutrition Therapy: Education provided about relation between healthy eating and health, MNT for weight management including: three meal per day with two carbohydrates per meal, a fresh salad (2-2 1/2 cups) at both lunch and dinner; one carbohydrate for mid- morning and mid-afternoon; portion controls; how to build a plate; food exchanges between food groups; importance of fiber; how to combine different fibers intodiet. In addition, education on MNT for label reading; uses of natural spices and herbs for flavoring; and, MNT for different oils/ fats, no trans fats and no hydrogenated oils. Goals: Eat two carbohydrates for breakfast, lunch and dinner Eat one carbohydrate for mid morning and mid afternoon snacks Eat a fresh salad > one cup at both lunch and dinner Eat protein and fats as advised in meal plan Drink water as beverage of choice-> 6-8 glasses and/ or Crystal Light/ Sugar free Exercise at least 30 minutes per day Use extra virgin olive oil(EVOO) after cooking on foods-> don't cook with EVOO Monitoring and Evaluation: Indicator Criteria Adherence frequency of eating, portion controls, carbohydrate exchanges, protein intake Weight Loss BMI, exercise routine and frequency Glucose control A1C, blood sugars Lipid control Lipid panel Provider: Devora Kearney RD, LDN documented in this encounter Plan of Treatment Upcoming Encounters Date Type Department Care Team (Late st Contact Info) Description 03/02/2025 9:15 AM EDT Office Visit [facility] CHC MED & PEDS [address] [place] [address] Africa Holman MD [address] [place] [address] 03/19/2025 3:00 PM EDT Clinical Support [facility] DIABETES/NUTRITION [address] [place] [address] [place] [address] documented as of this encounter Visit Diagnoses Diagnosis Over weight- Primary Overweight documented in this encounter Additional Health Concerns Assessment Noted Time PHQ-9 Depression Total Score: 2 02/14/20 24 10:30 AM EDT documented as of this encounter Care Teams Personal Lines Sales Executive Relationship Specialty Start Date End Date Africa Holman MD [address] [place] [address] PCP - General Family Medicine 11/05/20 documented as of this encounter
--- OUTSIDE RECORDS SUMMARY | 2025-02-16 11:42 | XMS_ITS | Encounter Summary ---
Author Organization [employer] Address [address] [place] [address] Care Team Providers Care Timber Sizer Name Role Phone Africa Holman MD Primary Care Provider [phone] Reason for Visit * Reason Onset Date Comments Appointment Request 11/03/2023 Encounter Details Date Type Department Care Team ([facility] Contact Info) Description 11/03/[address] [facility] CHC MED & PEDS [address] [place], [place] [phone] Africa Holman MD [address] [place] [address] Appointment Request Social History Tobacco Use Types [...] encounter Miscellaneous Notes * Telephone Encounter - Ramonmarlenydelmisfroy EllisonConnellyfidel Keys - 11/03/2023 2:47 PM EST Tc from pt requesting a PE appt which is needed for work . Please contact pt @ [phone] documented in this encounter Plan of Treatment Upcoming Encounters Date Type Department Care Team (Late st Contact Info) Description 03/02/2025 9:15 AM EDT Office Visit [facility] CHC MED & PEDS [address] [place] [address] Africa Holman MD [address] [place] [address] 03/19/2025 3:00 PM EDT Clinical Support [facility] DIABETES/NUTRITION [address] [place] [address] [place] [address] documented as of this encounter Visit Diagnoses Not on filedocumented in this encounter Additional Health Concerns Assessment Noted Time PHQ-9 Depression Total Score: 0 01/01/20 23 11:23 AM EDT documented as of this encounter Care Teams Timber Sizer Relationship Specialty Start Date End Date Africa Holman MD [address] [place] [address] PCP - General Family Medicine 11/05/20 documented as of this encounter
--- OUTSIDE RECORDS SUMMARY | 2025-02-16 11:42 | XMS_ITS | Encounter Summary ---
Author Organization [employer] Address [address] [facility] [address] [facility] [address] [place] [address] Care Team Providers Care Wooden Boat Builder Name Role Phone Africa Holman MD Primary Care Provider [phone] Encounter Details Date Type Department Care Team ([facility] st Contact Info) Description 02/13/2025 Orders Only [facility] CHC MED & PEDS [address] [place], [place] [phone] Africa Holman MD [address] [place] [address] Social History Tobacco Use Types Packs/Day Years [...] [facility] CHC MED & PEDS [address] [place] [address] Africa Holman MD [address] [place] [address] 03/19/2025 3:00 PM EDT Clinical Support [facility] DIABETES/NUTRITION [address] [place] [address] [place] [address] documented as of this encounter Visit Diagnoses Not on filedocumented in this encounter Additional Health Concerns Assessment Noted Time PHQ-9 Depression Total Score: 2 02/14/20 24 10:30 AM EDT documented as of this encounter Care Teams Wooden Boat Builder Relationship Specialty Start Date End Date Africa Holman MD [address] [place] [address] PCP - General Family Medicine 11/05/20 documented as of this encounter
--- OUTSIDE RECORDS SUMMARY | 2025-02-16 11:42 | XMS_ITS | Encounter Summary ---
Author Organization [employer] Address [address] [place] [address] Care Team Providers Care Card Fixer Name Role Phone Africa Holman MD Primary Care Provider [phone] Encounter Details Date Type Department Care Team (Latest Contact Info) Description 02/13/2025 Travel Social History Tobacco Use Types Packs/Day [...] 9:15 AM EDT Office Visit [facility] CHC MED & PEDS [address] [place] [address] Africa Holman MD [address] [place] [address] 03/19/2025 3:00 PM EDT Clinical Support [facility] DIABETES/NUTRITION [address] [place] [address] [place] [address] documented as of this encounter Visit Diagnoses Not on filedocumented in this encounter Additional Health Concerns Assessment Noted Time PHQ-9 Depression Total Score: 2 02/14/20 24 10:30 AM EDT documented as of this encounter Care Teams Card Fixer Relationship Specialty Start Date End Date Africa Holman MD [address] [place] [address] PCP - General Family Medicine 11/05/20 documented as of this encounter
== END 2025-02-16 11:14 | disposition home or self-care (01) ==
LOC: HO.CHCLDS 11:13
PROVIDERS: Visit Provider Advanced Practice Midwife
DX: B00.9 Herpesviral infection, unspecified (principal)
CPT/HCPCS: 36415; 86695; 86696

== ENCOUNTER 2025-04-30 11:09 | Outpatient (REF) | payer MEDICAID, SELFPAY ==
--- OUTSIDE RECORDS SUMMARY | 2025-04-30 12:19 | XMS_ITS | Clinical Summary ---
Author Organization [facility] Address [id number] [place] [id number] Care Team Providers Care Patrol Sergeant Name Role Phone Farzad Rodriguez MD Primary Care Provider [phone] Surgical History Surgery Date Site/Laterality Comments TONSILLECTOMY PROCEDURE: HISTORICAL TONSILLECTOMY COLONOSCOPY W/ POLYPECTOMY 11/03/2010 PROCEDURE: SD COLSC FLX W/RMVL OF TUMOR POLYP LESION SNARE TQ; COMMENT: large 2 cm sigmoid colon polyp: Tubulovillous adenoma. 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 DX:Congeni mike pes planus Morbid obesity (CMS/HCC V24, CMS/HCC V28) 10/26/2006 DX:Morbid obesity ([facility]) Depression 02/23/2008 DX:Depression Insomnia 02/23/2008 DX:Insomnia Unspecified [...] Td or Tdap) 10/26/2016 10/26/2006 COVID-19 Vaccine (1 2023-2 5 season) 2024 Depression Screening 10/11/2024 Influenza Vaccine (#1) 2025 0, 12/03/2009, 12/03/2009 Hepatitis A Vaccines Aged [...] age to complete this topic Meningococcal B Vaccine Aged Out No l onger eligible based on patient's age to complete this topic Pneumococcal Vaccine: Pediatrics (0 to 5 Years) and At-Risk Patients (6 to 49 Years) Aged Out No longer eligible b ased on patient's age to complete this topic RSV Immunization Patients Under 20 months Aged Out No longer eligible b ased on patient's age to complete this topic Varicella Vaccines Aged Out No longer eligible based on patient's age to complete this topic Care Teams Patrol Sergeant Relationship Specialty Start Date End Date Farzad Rodriguez MD [address] [place] [address] [address] [facility] ALINA Sears PCP - General Internal Medicine 11/18/12
--- OUTSIDE RECORDS SUMMARY | 2025-04-30 12:19 | XMS_ITS | Encounter Summary ---
Author Organization [employer] Address [address] [place] [address] Care Team Providers Care Rate Quoting Operator Name Role Phone Africa Holman MD Primary Care Provider [phone] Reason for Visit * Reason Onset Date Comments Appointment Request 11/03/2023 Encounter Details Date Type Department Care Team ([facility] Contact Info) Description 11/03/2023 Telephone [facility] MED & PEDS [address] [place] [address] Africa Holman MD [address] [place] [address] Appointment Request Social History Tobacco Use Types [...] for work . Please contact pt @ [phone] documented in this encounter Plan of Treatment Not on file documented as of this encounter Visit Diagnoses Not on filedocumented in this encounter Additional Health Concerns Assessment Noted Time PHQ-9 Depression Total Score: 0 01/01/20 23 11:23 AM EDT documented as of this encounter Care Teams Rate Quoting Operator Relationship Specialty Start Date End Date Africa Holman MD [address] [place] [address] PCP - General Family Medicine 11/05/20 documented as of this encounter
[2025-05-02 19:18] LABS: TS Negative Control Passed; TS Panel A 0; TS Panel B 0; TS Positive Control Passed; TSpotTB Negative (Negative)
== END 2025-04-30 11:10 | disposition home or self-care (01) ==
LOC: HO.CHCLDS 11:09
PROVIDERS: Visit Provider Student in an Organized Health Care Education/Training Program
DX: Z11.1 Encounter for screening for respiratory tuberculosis (principal)
CPT/HCPCS: 36415; 86481